=== PATIENT | male | born 1935 | race Caucasian/White ===

== ENCOUNTER 2017-10-06 12:40 | Inpatient (IN) | payer MEDICARE, BC ==
[2017-10-06] MEDS: ONDANSETRON 4 MG INJ IV (15:24)
[2017-10-06] MEDS: SOD CHLORIDE 0.9% 1,000 ML IV (15:25)
[2017-10-06 15:50] LABS: ABNORMAL IP MESSAGE 1; HEMATOCRIT 37.9 % (42.0-52.0); HEMOGLOBIN 11.8 g/dl (14.0-18.0); MEAN CORPUSCULAR HEMOGLOBIN 31.1 pg (29.0-33.0); MEAN CORPUSCULAR HGB CONC 31.1 g/dl (32.0-37.0); MEAN CORPUSCULAR VOLUME 99.7 fl (82.0-101.0); MEAN PLATELET VOLUME 11.1 fl (7.4-10.4); PLATELET COUNT 324 10^3/UL (140-415); POSITIVE DIFF @See below; RED CELL DISTRIBUTION WIDTH 14.6 % (11.5-14.5)
[2017-10-06 15:50] LABS: WHITE BLOOD COUNT 27.2 10^3/ul (4.8-10.8)
[2017-10-06 16:07] LABS: ALANINE AMINOTRANSFERASE 99 IU/L (13-69); ALBUMIN 3.8 g/dl (3.3-4.9); ALBUMIN/GLOBULIN RATIO 1.02; ALKALINE PHOSPHATASE 145 IU/L (42-121); ANION GAP 17 (8-16); ASPARTATE AMINO TRANSFERASE 35 IU/L (15-46); BILIRUBIN,INDIRECT 1.3 mg/dl (0-1.1); BILIRUBIN,TOTAL 1.3 mg/dl (0.2-1.3); BLOOD UREA NITROGEN 55 mg/dl (7-20); CALCIUM 8.8 mg/dl (8.4-10.2); CARBON DIOXIDE 29 mmol/L (21-31); CHLORIDE 107 mmol/L (97-110); CREATININE 2.16 mg/dl (0.61-1.24); GLUCOSE 135 mg/dl (70-220); LIPASE 366 U/L (23-300); POTASSIUM 3.8 mmol/L (3.5-5.1); SODIUM 149 mmol/L (135-144); TOTAL PROTEIN 7.5 g/dl (6.1-8.1)
[2017-10-06 16:09] LABS: ADD MAN DIFF? YES
[2017-10-06 16:45] LABS: BAND NEUTROPHILS % (M) 4 % (0-4); LYMPHOCYTES % (M) 4 % (15-51); MONOCYTE #M 1.9 10^3/ul (0.3-0.9); MONOCYTES % (M) 7 % (0-11); PLATELET ESTIMATE NORMAL; POIKILOCYTOSIS 1+ (0-0); SEG NEUT #M 23.4 10^3/ul (1.6-7.5); SEGMENTED NEUTROPHILS (M) % 85 % (39-77); SMUDGE%M 3 % (0-0)
[2017-10-06] MEDS: CEFEPIME 1GM/50 ML (PMX) 50 ML IVPB (17:57)
[2017-10-06] MEDS: SODIUM CHLORIDE 0.9% 1L BAG IV* (17:59)
[2017-10-06] MEDS ORDERED: NACL 0.9% 3 ML SYG IV ×2 (18:00)
[2017-10-06] MEDS ORDERED: ACETAMINOPHEN 325 MG TAB PO (18:00)
[2017-10-06] MEDS ORDERED: morphine 2 MG INJ IV (18:00)
[2017-10-06] MEDS ORDERED: ONDANSETRON 4 MG INJ IV (18:00)
[2017-10-06 18:19] LABS: INR 1.18; PROTIME 15.2 Sec (11.9-14.9); PT RATIO 1.2
[2017-10-06 18:20] LABS: PARTIAL THROMBOPLASTIN TIME 31.8 Sec (25.0-35.0)
[2017-10-06 18:29] LABS: LACTIC ACID 0.9 mmol/L (0.5-2.0)
[2017-10-06] MEDS: VANCOMYCIN 1 GM (PMX) 250 ML IVPB (18:30)
[2017-10-06 18:41] LABS: TROPONIN-I 0.036 ng/ml (0.000-0.120)
[2017-10-06 21:34] LABS: LACTIC ACID 0.8 mmol/L (0.5-2.0)
[2017-10-06] MEDS: HEPARIN 5,000 UNIT/0.5 ML VIAL SC (22:02)
[2017-10-06] MEDS: D5W-0.45 NACL + KCL 20 MEQ 1,000 ML IV (22:04)
[2017-10-07] MEDS: HYDROmorphONE 0.5 MG/0.5 ML SYG IV ×4 (01:54→17:16)
[2017-10-07] MEDS: D5W-0.45 NACL + KCL 20 MEQ 1,000 ML IV ×3 (01:55→17:15)
[2017-10-07 05:55] LABS: ADD MAN DIFF? NO
[2017-10-07 06:04] LABS: ABNORMAL IP MESSAGE 1; BASOPHILS % 0.1 % (0.0-2.0); EOSINOPHILS % 0.1 % (0.0-7.0); HEMATOCRIT 29.2 % (42.0-52.0); LYMPHOCYTES # 0.9 10^3/ul (0.8-2.9); MEAN CORPUSCULAR HEMOGLOBIN 30.7 pg (29.0-33.0); MEAN CORPUSCULAR HGB CONC 30.8 g/dl (32.0-37.0); MEAN CORPUSCULAR VOLUME 99.7 fl (82.0-101.0); MEAN PLATELET VOLUME 11.3 fl (7.4-10.4); MONOCYTE # 1.8 10^3/ul (0.3-0.9); MONOCYTES % 9.6 % (0.0-11.0); NEUTROPHIL # 15.7 10^3/ul (1.6-7.5); NEUTROPHILS % 84.4 % (39.0-77.0); PLATELET COUNT 271 10^3/UL (140-415); POSITIVE DIFF @See below; RED BLOOD COUNT 2.93 10^6/ul (4.70-6.10); RED CELL DISTRIBUTION WIDTH 14.6 % (11.5-14.5)
[2017-10-07 06:04] LABS: WHITE BLOOD COUNT 18.6 10^3/ul (4.8-10.8)
[2017-10-07 06:19] LABS: AMYLASE 119 U/L (11-123)
[2017-10-07 06:19] LABS: LIPASE 202 U/L (23-300)
[2017-10-07 06:24] LABS: ADD UMIC YES; UR AMORPHOUS CRYSTAL FEW /HPF (NONE SEEN); UR ASCORBIC ACID NEGATIVE (NEGATIVE); UR BACTERIA FEW /HPF (NONE SEEN); UR BILIRUBIN (Dip) NEGATIVE (NEGATIVE); UR BLOOD (Dip) NEGATIVE (NEGATIVE); UR CLARITY CLOUDY (CLEAR); UR COLOR YELLOW (YELLOW); UR GLUCOSE (Dip) NEGATIVE (NEGATIVE); UR KETONES (Dip) NEGATIVE (NEGATIVE); UR LEUKOCYTE ESTERASE (Dip) NEGATIVE Leu/ul (NEGATIVE); UR NITRITE (Dip) NEGATIVE (NEGATIVE); UR RBC 0 /HPF (0-5); UR SPECIFIC GRAVITY (Dip) 1.013 (1.003-1.030); UR TOTAL PROTEIN (Dip) NEGATIVE (NEGATIVE); UR UROBILINOGEN (Dip) NEGATIVE (NEGATIVE); UR WBC 2 /HPF (0-5)
[2017-10-07 06:35] LABS: ALANINE AMINOTRANSFERASE 65 IU/L (13-69); ALBUMIN 2.7 g/dl (3.3-4.9); ALKALINE PHOSPHATASE 98 IU/L (42-121); ANION GAP 11 (8-16); ASPARTATE AMINO TRANSFERASE 20 IU/L (15-46); BILIRUBIN,INDIRECT 0.6 mg/dl (0-1.1); BILIRUBIN,TOTAL 0.6 mg/dl (0.2-1.3); BLOOD UREA NITROGEN 66 mg/dl (7-20); CALCIUM 7.6 mg/dl (8.4-10.2); CARBON DIOXIDE 26 mmol/L (21-31); CHLORIDE 114 mmol/L (97-110); CREATININE 2.11 mg/dl (0.61-1.24); GLUCOSE 121 mg/dl (70-220); HDL CHOLESTEROL 20 mg/dl (31-75); MAGNESIUM 2.7 mg/dl (1.7-2.5); PHOSPHORUS 3.1 mg/dl (2.5-4.9); POTASSIUM 3.7 mmol/L (3.5-5.1); SODIUM 147 mmol/L (135-144); TOTAL PROTEIN 5.7 g/dl (6.1-8.1); TRIGLYCERIDES 54 mg/dl (0-149)
[2017-10-07] MEDS: PANTOPRAZOLE 40 MG INJ IV (06:37)
[2017-10-07] MEDS: HEPARIN 5,000 UNIT/0.5 ML VIAL SC ×3 (06:39→21:10)
[2017-10-07 06:40] LABS: CHOLESTEROL < 50 mg/dl (100-200)
[2017-10-07 07:25] LABS: HEMOGLOBIN A1C 5.7 % (0-5.9)
[2017-10-07] MEDS: CEFEPIME 2GM/50 ML (PMX) 50 ML IVPB (17:15)
[2017-10-07] MEDS: ZOLPIDEM 5 MG TAB PO (21:10)
[2017-10-07] MEDS: morphine 2 MG INJ IV (21:24)
[2017-10-08] MEDS: HYDROCODONE/APAP (5/325) TAB PO ×4 (00:09→20:33)
[2017-10-08] MEDS: D5W-0.45 NACL + KCL 20 MEQ 1,000 ML IV ×3 (01:55→16:34)
[2017-10-08] MEDS: PANTOPRAZOLE 40 MG INJ IV (05:56)
[2017-10-08] MEDS: HEPARIN 5,000 UNIT/0.5 ML VIAL SC ×3 (05:56→20:31)
[2017-10-08 06:11] LABS: ADD MAN DIFF? NO
[2017-10-08 06:20] LABS: WHITE BLOOD COUNT 16.8 10^3/ul (4.8-10.8)
[2017-10-08 06:20] LABS: ABNORMAL IP MESSAGE 1; BASOPHILS % 0.1 % (0.0-2.0); EOSINOPHILS # 0.1 10^3/ul (0.0-0.5); EOSINOPHILS % 0.7 % (0.0-7.0); HEMATOCRIT 30.5 % (42.0-52.0); HEMOGLOBIN 9.3 g/dl (14.0-18.0); LYMPHOCYTES # 1.1 10^3/ul (0.8-2.9); LYMPHOCYTES % 6.5 % (15.0-51.0); MEAN CORPUSCULAR HGB CONC 30.5 g/dl (32.0-37.0); MEAN CORPUSCULAR VOLUME 101.7 fl (82.0-101.0); MEAN PLATELET VOLUME 11.3 fl (7.4-10.4); MONOCYTE # 1.8 10^3/ul (0.3-0.9); MONOCYTES % 10.4 % (0.0-11.0); NEUTROPHIL # 13.8 10^3/ul (1.6-7.5); NEUTROPHILS % 81.8 % (39.0-77.0); PLATELET COUNT 276 10^3/UL (140-415); POSITIVE DIFF @See below; RED CELL DISTRIBUTION WIDTH 14.6 % (11.5-14.5)
[2017-10-08 06:45] LABS: ALANINE AMINOTRANSFERASE 52 IU/L (13-69); ALBUMIN 3.1 g/dl (3.3-4.9); ALBUMIN/GLOBULIN RATIO 0.91; ALKALINE PHOSPHATASE 93 IU/L (42-121); AMYLASE 71 U/L (11-123); ANION GAP 16 (8-16); ASPARTATE AMINO TRANSFERASE 23 IU/L (15-46); BILIRUBIN,INDIRECT 0.6 mg/dl (0-1.1); BILIRUBIN,TOTAL 0.6 mg/dl (0.2-1.3); BLOOD UREA NITROGEN 54 mg/dl (7-20); CALCIUM 7.9 mg/dl (8.4-10.2); CARBON DIOXIDE 24 mmol/L (21-31); CHLORIDE 114 mmol/L (97-110); GLUCOSE 123 mg/dl (70-220); LIPASE 84 U/L (23-300); POTASSIUM 4.1 mmol/L (3.5-5.1); SODIUM 150 mmol/L (135-144); TOTAL PROTEIN 6.5 g/dl (6.1-8.1)
[2017-10-08 06:57] LABS: MAGNESIUM 2.8 mg/dl (1.7-2.5)
[2017-10-08 06:57] LABS: PHOSPHORUS 3.2 mg/dl (2.5-4.9)
[2017-10-08] MEDS: morphine 2 MG INJ IV ×4 (08:21→22:47)
[2017-10-08] MEDS: LACTATED RINGER'S 500 ML IV ×2 (10:59→11:06)
[2017-10-08] MEDS: CEFEPIME 2GM/50 ML (PMX) 50 ML IVPB (16:35)
[2017-10-08] MEDS: TAMSULOSIN (SR) 0.4 MG CAP PO (20:30)
[2017-10-09] MEDS: HYDROCODONE/APAP (5/325) TAB PO ×4 (00:40→16:50)
[2017-10-09] MEDS: D5W-0.45 NACL + KCL 20 MEQ 1,000 ML IV ×4 (00:41→20:51)
[2017-10-09] MEDS: morphine 2 MG INJ IV ×2 (03:45→08:35)
[2017-10-09] MEDS: PANTOPRAZOLE 40 MG INJ IV (05:40)
[2017-10-09] MEDS: HEPARIN 5,000 UNIT/0.5 ML VIAL SC ×3 (05:43→20:53)
[2017-10-09 06:16] LABS: ADD MAN DIFF? NO
[2017-10-09 06:19] LABS: WHITE BLOOD COUNT 15.8 10^3/ul (4.8-10.8)
[2017-10-09 06:19] LABS: ABNORMAL IP MESSAGE 1; BASOPHILS % 0.3 % (0.0-2.0); EOSINOPHILS # 0.3 10^3/ul (0.0-0.5); EOSINOPHILS % 1.8 % (0.0-7.0); HEMATOCRIT 28.5 % (42.0-52.0); HEMOGLOBIN 8.6 g/dl (14.0-18.0); MEAN CORPUSCULAR HEMOGLOBIN 30.9 pg (29.0-33.0); MEAN CORPUSCULAR HGB CONC 30.2 g/dl (32.0-37.0); MEAN CORPUSCULAR VOLUME 102.5 fl (82.0-101.0); MEAN PLATELET VOLUME 11.1 fl (7.4-10.4); MONOCYTE # 1.8 10^3/ul (0.3-0.9); MONOCYTES % 11.5 % (0.0-11.0); NEUTROPHIL # 12.6 10^3/ul (1.6-7.5); NEUTROPHILS % 79.8 % (39.0-77.0); PLATELET COUNT 284 10^3/UL (140-415); POSITIVE DIFF @See below; RED BLOOD COUNT 2.78 10^6/ul (4.70-6.10); RED CELL DISTRIBUTION WIDTH 14.8 % (11.5-14.5)
[2017-10-09 06:47] LABS: ALANINE AMINOTRANSFERASE 49 IU/L (13-69); ALBUMIN 2.7 g/dl (3.3-4.9); ALKALINE PHOSPHATASE 90 IU/L (42-121); AMYLASE 52 U/L (11-123); ANION GAP 11 (8-16); ASPARTATE AMINO TRANSFERASE 18 IU/L (15-46); BILIRUBIN,INDIRECT 0.3 mg/dl (0-1.1); BILIRUBIN,TOTAL 0.3 mg/dl (0.2-1.3); BLOOD UREA NITROGEN 52 mg/dl (7-20); CARBON DIOXIDE 25 mmol/L (21-31); CHLORIDE 113 mmol/L (97-110); CREATININE 1.93 mg/dl (0.61-1.24); GLUCOSE 114 mg/dl (70-220); LIPASE 59 U/L (23-300); POTASSIUM 4.1 mmol/L (3.5-5.1); SODIUM 145 mmol/L (135-144); TOTAL PROTEIN 5.7 g/dl (6.1-8.1)
[2017-10-09 07:58] LABS: ERYTHROCYTE SEDIMENTATION RATE 104 mm/Hr (0-20)
[2017-10-09] MEDS: LACTATED RINGER'S 500 ML IV (11:39)
[2017-10-09] MEDS: morphine LIQ (10 MG/5 ML) CUP PO (12:50)
[2017-10-09] MEDS: CEFEPIME 2GM/50 ML (PMX) 50 ML IVPB (17:05)
[2017-10-09] MEDS: TAMSULOSIN (SR) 0.4 MG CAP PO (20:53)
[2017-10-10] MEDS: D5W-0.45 NACL + KCL 20 MEQ 1,000 ML IV ×2 (05:40→18:16)
[2017-10-10] MEDS: PANTOPRAZOLE 40 MG INJ IV (05:40)
[2017-10-10] MEDS: HEPARIN 5,000 UNIT/0.5 ML VIAL SC (05:42)
[2017-10-10 06:28] LABS: ADD MAN DIFF? NO
[2017-10-10 06:34] LABS: ABNORMAL IP MESSAGE 1; BASOPHILS % 0.2 % (0.0-2.0); EOSINOPHILS # 0.2 10^3/ul (0.0-0.5); EOSINOPHILS % 1.6 % (0.0-7.0); HEMATOCRIT 26.4 % (42.0-52.0); LYMPHOCYTES # 0.8 10^3/ul (0.8-2.9); LYMPHOCYTES % 5.4 % (15.0-51.0); MEAN CORPUSCULAR HEMOGLOBIN 30.8 pg (29.0-33.0); MEAN CORPUSCULAR HGB CONC 30.3 g/dl (32.0-37.0); MEAN CORPUSCULAR VOLUME 101.5 fl (82.0-101.0); MEAN PLATELET VOLUME 10.9 fl (7.4-10.4); MONOCYTE # 1.7 10^3/ul (0.3-0.9); MONOCYTES % 11.3 % (0.0-11.0); NEUTROPHIL # 12.4 10^3/ul (1.6-7.5); NEUTROPHILS % 80.7 % (39.0-77.0); PLATELET COUNT 288 10^3/UL (140-415); POSITIVE DIFF @See below; RED CELL DISTRIBUTION WIDTH 15.1 % (11.5-14.5)
[2017-10-10 06:34] LABS: WHITE BLOOD COUNT 15.4 10^3/ul (4.8-10.8)
[2017-10-10 06:54] LABS: ALANINE AMINOTRANSFERASE 42 IU/L (13-69); ALBUMIN 2.6 g/dl (3.3-4.9); ALBUMIN/GLOBULIN RATIO 0.86; ALKALINE PHOSPHATASE 89 IU/L (42-121); AMYLASE 56 U/L (11-123); ANION GAP 13 (8-16); ASPARTATE AMINO TRANSFERASE 17 IU/L (15-46); BILIRUBIN,INDIRECT 0.2 mg/dl (0-1.1); BILIRUBIN,TOTAL 0.2 mg/dl (0.2-1.3); BLOOD UREA NITROGEN 56 mg/dl (7-20); CALCIUM 8.2 mg/dl (8.4-10.2); CARBON DIOXIDE 24 mmol/L (21-31); CHLORIDE 114 mmol/L (97-110); CREATININE 1.98 mg/dl (0.61-1.24); GLUCOSE 119 mg/dl (70-220); LIPASE 52 U/L (23-300); POTASSIUM 4.9 mmol/L (3.5-5.1); SODIUM 146 mmol/L (135-144); TOTAL PROTEIN 5.6 g/dl (6.1-8.1)
[2017-10-10] MEDS ORDERED: BUPIVACAINE 0.25%/EPI (MDV) 50 ML VIAL INJ (08:00)
[2017-10-10] MEDS: HYDROCODONE/APAP (5/325) TAB PO ×2 (09:16→16:12)
[2017-10-10] MEDS: morphine LIQ (10 MG/5 ML) CUP PO ×2 (12:16→18:16)
[2017-10-10 16:10] LABS: INR 1.18; PROTIME 15.2 Sec (11.9-14.9); PT RATIO 1.2
[2017-10-10] MEDS: CEFEPIME 2GM/50 ML (PMX) 50 ML IVPB (16:12)
[2017-10-10] MEDS: SOD CHLORIDE 0.9% 1,000 ML IV (20:21)
[2017-10-10] MEDS: TAMSULOSIN (SR) 0.4 MG CAP PO (20:22)
[2017-10-11] MEDS: LIDOCAINE 1% (MPF) 30 ML INJ
[2017-10-11] MEDS: SODIUM CHLORIDE 0.9% 1L IRRIG IRR
[2017-10-11] MEDS: D5W-0.45 NACL + KCL 20 MEQ 1,000 ML IV ×3 (03:34→21:59)
[2017-10-11] MEDS: PANTOPRAZOLE 40 MG INJ IV (06:46)
[2017-10-11] MEDS ORDERED: BUPIVACAINE 0.25%/EPI (MDV) 50 ML VIAL INJ (07:00)
[2017-10-11] MEDS: HYDROCODONE/APAP (5/325) TAB PO ×2 (09:59→17:26)
[2017-10-11] MEDS: morphine LIQ (10 MG/5 ML) CUP PO (12:09)
[2017-10-11 14:49] LABS: ADD MAN DIFF? NO
[2017-10-11 14:52] LABS: WHITE BLOOD COUNT 14.9 10^3/ul (4.8-10.8)
[2017-10-11 14:52] LABS: ABNORMAL IP MESSAGE 1; BASOPHILS % 0.2 % (0.0-2.0); EOSINOPHILS # 0.2 10^3/ul (0.0-0.5); EOSINOPHILS % 1.4 % (0.0-7.0); HEMATOCRIT 26.3 % (42.0-52.0); LYMPHOCYTES # 0.6 10^3/ul (0.8-2.9); MEAN CORPUSCULAR HEMOGLOBIN 30.7 pg (29.0-33.0); MEAN CORPUSCULAR HGB CONC 30.4 g/dl (32.0-37.0); MEAN CORPUSCULAR VOLUME 100.8 fl (82.0-101.0); MONOCYTE # 1.7 10^3/ul (0.3-0.9); MONOCYTES % 11.3 % (0.0-11.0); NEUTROPHIL # 12.2 10^3/ul (1.6-7.5); PLATELET COUNT 320 10^3/UL (140-415); POSITIVE DIFF @See below; RED BLOOD COUNT 2.61 10^6/ul (4.70-6.10); RED CELL DISTRIBUTION WIDTH 15.3 % (11.5-14.5)
[2017-10-11 15:24] LABS: ALANINE AMINOTRANSFERASE 45 IU/L (13-69); ALBUMIN 2.5 g/dl (3.3-4.9); ALBUMIN/GLOBULIN RATIO 0.83; ALKALINE PHOSPHATASE 89 IU/L (42-121); AMYLASE 44 U/L (11-123); ANION GAP 10 (8-16); ASPARTATE AMINO TRANSFERASE 26 IU/L (15-46); BILIRUBIN,INDIRECT 0.1 mg/dl (0-1.1); BILIRUBIN,TOTAL 0.1 mg/dl (0.2-1.3); BLOOD UREA NITROGEN 47 mg/dl (7-20); CALCIUM 8.4 mg/dl (8.4-10.2); CARBON DIOXIDE 24 mmol/L (21-31); CHLORIDE 116 mmol/L (97-110); CREATININE 1.51 mg/dl (0.61-1.24); GLUCOSE 132 mg/dl (70-220); LIPASE 46 U/L (23-300); POTASSIUM 5.3 mmol/L (3.5-5.1); SODIUM 145 mmol/L (135-144); TOTAL PROTEIN 5.5 g/dl (6.1-8.1)
[2017-10-11] MEDS: CEFEPIME 2GM/50 ML (PMX) 50 ML IVPB (17:26)
[2017-10-11] MEDS: TAMSULOSIN (SR) 0.4 MG CAP PO (21:58)
[2017-10-12] MEDS: D5W-0.45 NACL + KCL 20 MEQ 1,000 ML IV ×3 (01:55→18:41)
[2017-10-12] MEDS: PANTOPRAZOLE 40 MG INJ IV (05:51)
[2017-10-12 07:04] LABS: ADD MAN DIFF? NO
[2017-10-12 07:05] LABS: ABNORMAL IP MESSAGE 1; BASOPHILS % 0.2 % (0.0-2.0); EOSINOPHILS # 0.2 10^3/ul (0.0-0.5); EOSINOPHILS % 1.4 % (0.0-7.0); HEMATOCRIT 27.4 % (42.0-52.0); HEMOGLOBIN 8.3 g/dl (14.0-18.0); LYMPHOCYTES # 0.4 10^3/ul (0.8-2.9); LYMPHOCYTES % 2.5 % (15.0-51.0); MEAN CORPUSCULAR HEMOGLOBIN 30.6 pg (29.0-33.0); MEAN CORPUSCULAR HGB CONC 30.3 g/dl (32.0-37.0); MEAN CORPUSCULAR VOLUME 101.1 fl (82.0-101.0); MEAN PLATELET VOLUME 10.7 fl (7.4-10.4); MONOCYTE # 1.4 10^3/ul (0.3-0.9); MONOCYTES % 10.3 % (0.0-11.0); NEUTROPHIL # 11.8 10^3/ul (1.6-7.5); NEUTROPHILS % 84.6 % (39.0-77.0); PLATELET COUNT 347 10^3/UL (140-415); POSITIVE DIFF @See below; RED BLOOD COUNT 2.71 10^6/ul (4.70-6.10); RED CELL DISTRIBUTION WIDTH 15.2 % (11.5-14.5)
[2017-10-12 07:30] LABS: LACTATE DEHYDROGENASE 739 IU/L (313-618); MAGNESIUM 2.2 mg/dl (1.7-2.5)
[2017-10-12 07:30] LABS: PHOSPHORUS 3.2 mg/dl (2.5-4.9)
[2017-10-12 07:31] LABS: ALANINE AMINOTRANSFERASE 45 IU/L (13-69); ALBUMIN 2.5 g/dl (3.3-4.9); ALBUMIN/GLOBULIN RATIO 0.78; ALKALINE PHOSPHATASE 90 IU/L (42-121); AMYLASE 39 U/L (11-123); ANION GAP 13 (8-16); ASPARTATE AMINO TRANSFERASE 35 IU/L (15-46); BILIRUBIN,INDIRECT 0.1 mg/dl (0-1.1); BILIRUBIN,TOTAL 0.1 mg/dl (0.2-1.3); BLOOD UREA NITROGEN 44 mg/dl (7-20); CALCIUM 8.5 mg/dl (8.4-10.2); CARBON DIOXIDE 21 mmol/L (21-31); CHLORIDE 117 mmol/L (97-110); CREATININE 1.48 mg/dl (0.61-1.24); GLUCOSE 112 mg/dl (70-220); LIPASE 39 U/L (23-300); POTASSIUM 4.9 mmol/L (3.5-5.1); SODIUM 146 mmol/L (135-144); TOTAL PROTEIN 5.7 g/dl (6.1-8.1)
[2017-10-12] MEDS: CREON (12k-38k-60k) 1 CAP PO ×3 (08:06→17:48)
[2017-10-12] MEDS ORDERED: LIDOCAINE 1% (MPF) 30 ML INJ (09:29)
[2017-10-12] MEDS: HEPARIN 5,000 UNIT/0.5 ML VIAL SC ×2 (14:00→21:35)
[2017-10-12] MEDS: CEFEPIME 2GM/50 ML (PMX) 50 ML IVPB (16:56)
[2017-10-12] MEDS: METOCLOPRAMIDE 10 MG INJ IV (18:41)
[2017-10-12] MEDS: TAMSULOSIN (SR) 0.4 MG CAP PO (21:35)
[2017-10-13] MEDS: D5W-0.45 NACL + KCL 20 MEQ 1,000 ML IV (02:32)
[2017-10-13] MEDS: METOCLOPRAMIDE 10 MG INJ IV ×2 (02:33→11:59)
[2017-10-13] MEDS: PANTOPRAZOLE 40 MG INJ IV (05:35)
[2017-10-13] MEDS: HEPARIN 5,000 UNIT/0.5 ML VIAL SC ×3 (05:37→21:37)
[2017-10-13] MEDS: ONDANSETRON 4 MG INJ IV (05:37)
[2017-10-13 06:26] LABS: ADD MAN DIFF? NO; BASOPHILS % 0.2 % (0.0-2.0); EOSINOPHILS # 0.2 10^3/ul (0.0-0.5); EOSINOPHILS % 1.5 % (0.0-7.0); HEMATOCRIT 25.7 % (42.0-52.0); LYMPHOCYTES # 0.6 10^3/ul (0.8-2.9); MEAN CORPUSCULAR HEMOGLOBIN 30.9 pg (29.0-33.0); MEAN CORPUSCULAR HGB CONC 31.1 g/dl (32.0-37.0); MEAN CORPUSCULAR VOLUME 99.2 fl (82.0-101.0); MEAN PLATELET VOLUME 10.6 fl (7.4-10.4); MONOCYTE # 1.4 10^3/ul (0.3-0.9); NEUTROPHIL # 13.2 10^3/ul (1.6-7.5); NEUTROPHILS % 84.3 % (39.0-77.0); NUCLEATED RED BLOOD CELLS% 0.1 /100WBC (0.0-0.0); PLATELET COUNT 369 10^3/UL (140-415); RED BLOOD COUNT 2.59 10^6/ul (4.70-6.10); RED CELL DISTRIBUTION WIDTH 15.3 % (11.5-14.5)
[2017-10-13 06:26] LABS: WHITE BLOOD COUNT 15.7 10^3/ul (4.8-10.8)
[2017-10-13 06:48] LABS: ALANINE AMINOTRANSFERASE 55 IU/L (13-69); ALBUMIN 2.3 g/dl (3.3-4.9); ALBUMIN/GLOBULIN RATIO 0.82; ALKALINE PHOSPHATASE 84 IU/L (42-121); AMYLASE 34 U/L (11-123); ANION GAP 8 (8-16); ASPARTATE AMINO TRANSFERASE 44 IU/L (15-46); BILIRUBIN,INDIRECT 0.1 mg/dl (0-1.1); BILIRUBIN,TOTAL 0.1 mg/dl (0.2-1.3); BLOOD UREA NITROGEN 32 mg/dl (7-20); CALCIUM 8.3 mg/dl (8.4-10.2); CARBON DIOXIDE 23 mmol/L (21-31); CHLORIDE 120 mmol/L (97-110); CREATININE 1.22 mg/dl (0.61-1.24); GLUCOSE 144 mg/dl (70-220); LIPASE 59 U/L (23-300); POTASSIUM 5.3 mmol/L (3.5-5.1); SODIUM 146 mmol/L (135-144); TOTAL PROTEIN 5.1 g/dl (6.1-8.1)
[2017-10-13] MEDS: CREON (12k-38k-60k) 1 CAP PO ×3 (07:35→17:33)
[2017-10-13] MEDS: POTASSIUM CHLORIDE 10 MEQ in DEXTROSE 5%-0.225% NACL 1,000 ML IV ×3 (11:01→20:30)
[2017-10-13] MEDS: CEFEPIME 2GM/50 ML (PMX) 50 ML IVPB (17:33)
[2017-10-13] MEDS: TAMSULOSIN (SR) 0.4 MG CAP PO (20:33)
[2017-10-14] MEDS: POTASSIUM CHLORIDE 10 MEQ in DEXTROSE 5%-0.225% NACL 1,000 ML IV ×3 (05:40→22:23)
[2017-10-14] MEDS: PANTOPRAZOLE 40 MG INJ IV (05:40)
[2017-10-14] MEDS: HEPARIN 5,000 UNIT/0.5 ML VIAL SC ×3 (05:45→22:29)
[2017-10-14 05:49] LABS: ADD MAN DIFF? NO
[2017-10-14 05:53] LABS: BASOPHILS % 0.2 % (0.0-2.0); EOSINOPHILS # 0.2 10^3/ul (0.0-0.5); EOSINOPHILS % 1.2 % (0.0-7.0); HEMATOCRIT 26.9 % (42.0-52.0); HEMOGLOBIN 8.3 g/dl (14.0-18.0); LYMPHOCYTES # 0.7 10^3/ul (0.8-2.9); LYMPHOCYTES % 4.3 % (15.0-51.0); MEAN CORPUSCULAR HEMOGLOBIN 30.4 pg (29.0-33.0); MEAN CORPUSCULAR HGB CONC 30.9 g/dl (32.0-37.0); MEAN CORPUSCULAR VOLUME 98.5 fl (82.0-101.0); MEAN PLATELET VOLUME 10.6 fl (7.4-10.4); MONOCYTE # 1.4 10^3/ul (0.3-0.9); MONOCYTES % 8.6 % (0.0-11.0); NEUTROPHIL # 14.1 10^3/ul (1.6-7.5); NEUTROPHILS % 84.4 % (39.0-77.0); NUCLEATED RED BLOOD CELLS% 0.1 /100WBC (0.0-0.0); PLATELET COUNT 412 10^3/UL (140-415); RED BLOOD COUNT 2.73 10^6/ul (4.70-6.10); RED CELL DISTRIBUTION WIDTH 15.1 % (11.5-14.5)
[2017-10-14 05:53] LABS: WHITE BLOOD COUNT 16.7 10^3/ul (4.8-10.8)
[2017-10-14 06:08] LABS: ALANINE AMINOTRANSFERASE 67 IU/L (13-69); ALBUMIN 2.4 g/dl (3.3-4.9); ALBUMIN/GLOBULIN RATIO 0.82; ALKALINE PHOSPHATASE 83 IU/L (42-121); ANION GAP 11 (8-16); ASPARTATE AMINO TRANSFERASE 48 IU/L (15-46); BILIRUBIN,INDIRECT 0.1 mg/dl (0-1.1); BILIRUBIN,TOTAL 0.1 mg/dl (0.2-1.3); BLOOD UREA NITROGEN 24 mg/dl (7-20); CALCIUM 8.3 mg/dl (8.4-10.2); CARBON DIOXIDE 21 mmol/L (21-31); CHLORIDE 117 mmol/L (97-110); CREATININE 1.12 mg/dl (0.61-1.24); GLUCOSE 135 mg/dl (70-220); POTASSIUM 4.2 mmol/L (3.5-5.1); SODIUM 145 mmol/L (135-144); TOTAL PROTEIN 5.3 g/dl (6.1-8.1)
[2017-10-14] MEDS: CREON (12k-38k-60k) 1 CAP PO ×3 (08:39→17:54)
[2017-10-14] MEDS: ACCU-CHEK XX ×4 (09:30→21:00)
[2017-10-14] MEDS: ONDANSETRON 4 MG INJ IV ×2 (12:37→21:28)
[2017-10-14 12:39] LABS: MAGNESIUM 1.6 mg/dl (1.7-2.5); TRIGLYCERIDES 118 mg/dl (0-149)
[2017-10-14 12:39] LABS: PHOSPHORUS 2.6 mg/dl (2.5-4.9)
[2017-10-14 12:46] LABS: PREALBUMIN 6.7 mg/dl (17.6-36.0)
[2017-10-14] MEDS: CEFEPIME 2GM/50 ML (PMX) 50 ML IVPB (16:14)
[2017-10-14] MEDS: METOCLOPRAMIDE 10 MG INJ IV (18:09)
[2017-10-14] MEDS ORDERED: FAT EMULSION 20% 250 ML IV (19:00)
[2017-10-14] MEDS ORDERED: TPN 1,000 ML IV (19:00)
[2017-10-14] MEDS: MAGNESIUM OXIDE 400 MG TAB PO (21:28)
[2017-10-14] MEDS: TAMSULOSIN (SR) 0.4 MG CAP PO (21:28)
[2017-10-15] MEDS: ACCU-CHEK XX ×6 (01:00→22:05)
[2017-10-15] MEDS: PANTOPRAZOLE 40 MG INJ IV (05:46)
[2017-10-15] MEDS: HEPARIN 5,000 UNIT/0.5 ML VIAL SC ×3 (05:49→22:05)
[2017-10-15 06:04] LABS: ADD MAN DIFF? NO
[2017-10-15 06:13] LABS: WHITE BLOOD COUNT 13.6 10^3/ul (4.8-10.8)
[2017-10-15 06:13] LABS: BASOPHILS % 0.2 % (0.0-2.0); EOSINOPHILS # 0.2 10^3/ul (0.0-0.5); EOSINOPHILS % 1.5 % (0.0-7.0); HEMATOCRIT 25.6 % (42.0-52.0); HEMOGLOBIN 7.9 g/dl (14.0-18.0); LYMPHOCYTES # 0.8 10^3/ul (0.8-2.9); LYMPHOCYTES % 6.1 % (15.0-51.0); MEAN CORPUSCULAR HEMOGLOBIN 30.4 pg (29.0-33.0); MEAN CORPUSCULAR HGB CONC 30.9 g/dl (32.0-37.0); MEAN CORPUSCULAR VOLUME 98.5 fl (82.0-101.0); MONOCYTE # 1.3 10^3/ul (0.3-0.9); MONOCYTES % 9.2 % (0.0-11.0); NEUTROPHIL # 11.1 10^3/ul (1.6-7.5); NEUTROPHILS % 81.5 % (39.0-77.0); PLATELET COUNT 391 10^3/UL (140-415); RED CELL DISTRIBUTION WIDTH 14.8 % (11.5-14.5)
[2017-10-15 06:33] LABS: ALANINE AMINOTRANSFERASE 64 IU/L (13-69); ALKALINE PHOSPHATASE 73 IU/L (42-121); ASPARTATE AMINO TRANSFERASE 38 IU/L (15-46); BILIRUBIN,INDIRECT 0.1 mg/dl (0-1.1); BILIRUBIN,TOTAL 0.1 mg/dl (0.2-1.3); TOTAL PROTEIN 4.5 g/dl (6.1-8.1)
[2017-10-15 07:03] LABS: ANION GAP 11 (8-16); BLOOD UREA NITROGEN 18 mg/dl (7-20); CALCIUM 8.2 mg/dl (8.4-10.2); CARBON DIOXIDE 22 mmol/L (21-31); CHLORIDE 116 mmol/L (97-110); CREATININE 1.05 mg/dl (0.61-1.24); GLUCOSE 115 mg/dl (70-220); MAGNESIUM 1.5 mg/dl (1.7-2.5); PHOSPHORUS 2.6 mg/dl (2.5-4.9); POTASSIUM 4.1 mmol/L (3.5-5.1); SODIUM 145 mmol/L (135-144)
[2017-10-15] MEDS: CREON (12k-38k-60k) 1 CAP PO ×3 (07:35→17:35)
[2017-10-15] MEDS: FUROSEMIDE 20 MG INJ IV (08:52)
[2017-10-15] MEDS: POTASSIUM CHLORIDE 10 MEQ in DEXTROSE 5%-0.225% NACL 1,000 ML IV (08:53)
[2017-10-15] MEDS: ONDANSETRON 4 MG INJ IV ×2 (09:35→21:49)
[2017-10-15] MEDS: MAGNESIUM SULFATE 2 GM/50 ML 50 ML IVPB (11:52)
[2017-10-15] MEDS: TPN 1,000 ML IV (16:05)
[2017-10-15] MEDS: FAT EMULSION 20% 250 ML IV (16:05)
[2017-10-15] MEDS: METOCLOPRAMIDE 10 MG INJ IV (16:05)
[2017-10-15] MEDS: CEFEPIME 2GM/50 ML (PMX) 50 ML IVPB (17:00)
[2017-10-15] MEDS: metroNIDAZOLE 500 MG/NS (PMX) 100 ML IVPB (17:44)
[2017-10-15] MEDS: VANCOMYCIN HCL 250 MG/5ML POSYG PO (17:44)
[2017-10-15] MEDS: TAMSULOSIN (SR) 0.4 MG CAP PO (21:44)
[2017-10-15] MEDS: LACTOBACILLUS RHAMNOSUS CAP PO (21:44)
[2017-10-16] MEDS: metroNIDAZOLE 500 MG/NS (PMX) 100 ML IVPB ×4 (00:49→17:03)
[2017-10-16] MEDS: VANCOMYCIN HCL 250 MG/5ML POSYG PO ×4 (00:49→17:03)
[2017-10-16] MEDS: METOCLOPRAMIDE 10 MG INJ IV (00:54)
[2017-10-16] MEDS: ACCU-CHEK XX ×6 (01:00→20:44)
[2017-10-16] MEDS: FUROSEMIDE 20 MG INJ IV (05:24)
[2017-10-16] MEDS: PANTOPRAZOLE 40 MG INJ IV (05:45)
[2017-10-16] MEDS: HEPARIN 5,000 UNIT/0.5 ML VIAL SC ×3 (05:51→22:04)
[2017-10-16 07:02] LABS: ANION GAP 10 (8-16); BLOOD UREA NITROGEN 16 mg/dl (7-20); CALCIUM 8.1 mg/dl (8.4-10.2); CARBON DIOXIDE 24 mmol/L (21-31); CHLORIDE 113 mmol/L (97-110); CREATININE 1.03 mg/dl (0.61-1.24); GLUCOSE 115 mg/dl (70-220); MAGNESIUM 1.8 mg/dl (1.7-2.5); PHOSPHORUS 3.3 mg/dl (2.5-4.9); SODIUM 143 mmol/L (135-144)
[2017-10-16] MEDS: LACTOBACILLUS RHAMNOSUS CAP PO ×2 (09:00→20:44)
[2017-10-16] MEDS: CREON (12k-38k-60k) 1 CAP PO ×3 (09:00→17:03)
[2017-10-16] MEDS: TPN 1,000 ML IV ×2 (12:37→14:30)
[2017-10-16] MEDS: ONDANSETRON 4 MG INJ IV (12:39)
[2017-10-16] MEDS: FAT EMULSION 20% 250 ML IV (17:02)
[2017-10-16] MEDS: TAMSULOSIN (SR) 0.4 MG CAP PO (20:44)
[2017-10-17] MEDS: ACCU-CHEK XX ×6 (00:28→23:51)
[2017-10-17] MEDS: metroNIDAZOLE 500 MG/NS (PMX) 100 ML IVPB ×5 (00:35→23:51)
[2017-10-17] MEDS: TPN 1,000 ML IV ×2 (00:36→12:22)
[2017-10-17] MEDS: VANCOMYCIN HCL 250 MG/5ML POSYG PO ×5 (00:36→23:51)
[2017-10-17] MEDS: HYDROCODONE/APAP (5/325) TAB PO (00:36)
[2017-10-17] MEDS: PANTOPRAZOLE 40 MG INJ IV (05:49)
[2017-10-17] MEDS: HEPARIN 5,000 UNIT/0.5 ML VIAL SC ×3 (05:52→21:22)
[2017-10-17 06:46] LABS: ANION GAP 10 (8-16); BLOOD UREA NITROGEN 21 mg/dl (7-20); CALCIUM 8.2 mg/dl (8.4-10.2); CARBON DIOXIDE 28 mmol/L (21-31); CHLORIDE 109 mmol/L (97-110); GLUCOSE 147 mg/dl (70-220); MAGNESIUM 1.7 mg/dl (1.7-2.5); PHOSPHORUS 3.8 mg/dl (2.5-4.9); POTASSIUM 3.7 mmol/L (3.5-5.1); SODIUM 143 mmol/L (135-144)
[2017-10-17] MEDS: CREON (12k-38k-60k) 1 CAP PO ×3 (08:19→17:47)
[2017-10-17] MEDS: LACTOBACILLUS RHAMNOSUS CAP PO ×2 (08:19→21:11)
[2017-10-17] MEDS: FUROSEMIDE 20 MG INJ IV (15:00)
[2017-10-17] MEDS: FAT EMULSION 20% 250 ML IV (16:32)
[2017-10-17] MEDS: TAMSULOSIN (SR) 0.4 MG CAP PO (21:11)
[2017-10-18] MEDS: HYDROCODONE/APAP (5/325) TAB PO (01:27)
[2017-10-18] MEDS: TPN 1,000 ML IV ×2 (01:27→12:59)
[2017-10-18 05:44] LABS: ANION GAP 9 (8-16); BLOOD UREA NITROGEN 23 mg/dl (7-20); CALCIUM 8.1 mg/dl (8.4-10.2); CARBON DIOXIDE 30 mmol/L (21-31); CHLORIDE 108 mmol/L (97-110); CREATININE 0.96 mg/dl (0.61-1.24); GLUCOSE 149 mg/dl (70-220); POTASSIUM 3.9 mmol/L (3.5-5.1); SODIUM 143 mmol/L (135-144)
[2017-10-18] MEDS: PANTOPRAZOLE 40 MG INJ IV (05:47)
[2017-10-18] MEDS: VANCOMYCIN HCL 250 MG/5ML POSYG PO ×3 (05:48→17:50)
[2017-10-18] MEDS: metroNIDAZOLE 500 MG/NS (PMX) 100 ML IVPB ×3 (05:48→17:50)
[2017-10-18] MEDS: HEPARIN 5,000 UNIT/0.5 ML VIAL SC ×3 (05:49→22:03)
[2017-10-18] MEDS: ACCU-CHEK XX ×3 (05:55→17:58)
[2017-10-18] MEDS: CREON (12k-38k-60k) 1 CAP PO ×3 (07:55→17:50)
[2017-10-18] MEDS: LACTOBACILLUS RHAMNOSUS CAP PO ×2 (08:46→20:43)
[2017-10-18] MEDS: FAT EMULSION 20% 250 ML IV (16:13)
[2017-10-18] MEDS: TAMSULOSIN (SR) 0.4 MG CAP PO (20:43)
[2017-10-19] MEDS: metroNIDAZOLE 500 MG/NS (PMX) 100 ML IVPB ×5 (00:08→23:56)
[2017-10-19] MEDS: VANCOMYCIN HCL 250 MG/5ML POSYG PO ×5 (00:09→23:55)
[2017-10-19] MEDS: ACCU-CHEK XX ×4 (00:13→17:30)
[2017-10-19] MEDS: HYDROCODONE/APAP (5/325) TAB PO (00:25)
[2017-10-19] MEDS: TPN 1,000 ML IV ×2 (04:25→16:20)
[2017-10-19] MEDS: PANTOPRAZOLE 40 MG INJ IV (05:44)
[2017-10-19] MEDS: HEPARIN 5,000 UNIT/0.5 ML VIAL SC ×3 (05:45→21:30)
[2017-10-19 06:57] LABS: ADD MAN DIFF? NO
[2017-10-19 07:07] LABS: BASOPHILS % 0.3 % (0.0-2.0); EOSINOPHILS # 0.2 10^3/ul (0.0-0.5); EOSINOPHILS % 2.4 % (0.0-7.0); HEMATOCRIT 26.2 % (42.0-52.0); HEMOGLOBIN 8.1 g/dl (14.0-18.0); LYMPHOCYTES % 10.5 % (15.0-51.0); MEAN CORPUSCULAR HGB CONC 30.9 g/dl (32.0-37.0); MEAN PLATELET VOLUME 10.9 fl (7.4-10.4); MONOCYTE # 1.1 10^3/ul (0.3-0.9); MONOCYTES % 12.1 % (0.0-11.0); NEUTROPHIL # 6.8 10^3/ul (1.6-7.5); NEUTROPHILS % 72.6 % (39.0-77.0); PLATELET COUNT 456 10^3/UL (140-415); RED CELL DISTRIBUTION WIDTH 14.4 % (11.5-14.5)
[2017-10-19 07:07] LABS: WHITE BLOOD COUNT 9.4 10^3/ul (4.8-10.8)
[2017-10-19 07:45] LABS: ALANINE AMINOTRANSFERASE 44 IU/L (13-69); ALBUMIN 2.4 g/dl (3.3-4.9); ALBUMIN/GLOBULIN RATIO 0.82; ALKALINE PHOSPHATASE 66 IU/L (42-121); ANION GAP 13 (8-16); ASPARTATE AMINO TRANSFERASE 30 IU/L (15-46); BLOOD UREA NITROGEN 24 mg/dl (7-20); CALCIUM 8.3 mg/dl (8.4-10.2); CARBON DIOXIDE 28 mmol/L (21-31); CHLORIDE 105 mmol/L (97-110); CREATININE 0.93 mg/dl (0.61-1.24); GLUCOSE 133 mg/dl (70-220); POTASSIUM 4.1 mmol/L (3.5-5.1); SODIUM 142 mmol/L (135-144); TOTAL PROTEIN 5.3 g/dl (6.1-8.1)
[2017-10-19] MEDS: CREON (12k-38k-60k) 1 CAP PO ×3 (08:23→17:25)
[2017-10-19] MEDS: LACTOBACILLUS RHAMNOSUS CAP PO ×2 (08:23→21:27)
[2017-10-19] MEDS: FAT EMULSION 20% 250 ML IV (16:08)
[2017-10-19] MEDS: TAMSULOSIN (SR) 0.4 MG CAP PO (21:27)
[2017-10-20] MEDS: ACCU-CHEK XX ×4 (00:10→18:13)
[2017-10-20] MEDS: TPN 1,000 ML IV ×2 (04:44→18:10)
[2017-10-20] MEDS: PANTOPRAZOLE 40 MG INJ IV (05:34)
[2017-10-20] MEDS: VANCOMYCIN HCL 250 MG/5ML POSYG PO ×3 (05:35→17:59)
[2017-10-20] MEDS: metroNIDAZOLE 500 MG/NS (PMX) 100 ML IVPB ×3 (05:35→17:59)
[2017-10-20] MEDS: HEPARIN 5,000 UNIT/0.5 ML VIAL SC ×3 (05:35→22:37)
[2017-10-20 05:58] LABS: ADD MAN DIFF? NO
[2017-10-20 06:06] LABS: WHITE BLOOD COUNT 8.8 10^3/ul (4.8-10.8)
[2017-10-20 06:06] LABS: BASOPHILS % 0.5 % (0.0-2.0); EOSINOPHILS # 0.2 10^3/ul (0.0-0.5); EOSINOPHILS % 2.6 % (0.0-7.0); HEMATOCRIT 26.7 % (42.0-52.0); HEMOGLOBIN 8.4 g/dl (14.0-18.0); LYMPHOCYTES % 10.9 % (15.0-51.0); MEAN CORPUSCULAR HEMOGLOBIN 30.7 pg (29.0-33.0); MEAN CORPUSCULAR HGB CONC 31.5 g/dl (32.0-37.0); MEAN CORPUSCULAR VOLUME 97.4 fl (82.0-101.0); MEAN PLATELET VOLUME 11.2 fl (7.4-10.4); MONOCYTES % 11.2 % (0.0-11.0); NEUTROPHIL # 6.4 10^3/ul (1.6-7.5); NEUTROPHILS % 72.6 % (39.0-77.0); PLATELET COUNT 384 10^3/UL (140-415); RED BLOOD COUNT 2.74 10^6/ul (4.70-6.10); RED CELL DISTRIBUTION WIDTH 14.6 % (11.5-14.5)
[2017-10-20 06:34] LABS: ANION GAP 9 (8-16); BLOOD UREA NITROGEN 24 mg/dl (7-20); CALCIUM 8.2 mg/dl (8.4-10.2); CARBON DIOXIDE 32 mmol/L (21-31); CHLORIDE 105 mmol/L (97-110); CREATININE 0.86 mg/dl (0.61-1.24); GLUCOSE 125 mg/dl (70-220); MAGNESIUM 1.8 mg/dl (1.7-2.5); PHOSPHORUS 3.3 mg/dl (2.5-4.9); POTASSIUM 4.3 mmol/L (3.5-5.1); SODIUM 142 mmol/L (135-144)
[2017-10-20] MEDS: LACTOBACILLUS RHAMNOSUS CAP PO ×2 (08:30→22:34)
[2017-10-20] MEDS: CREON (12k-38k-60k) 1 CAP PO ×3 (08:30→17:59)
[2017-10-20] MEDS: FAT EMULSION 20% 250 ML IV (17:59)
[2017-10-20] MEDS: TAMSULOSIN (SR) 0.4 MG CAP PO (22:34)
[2017-10-20] MEDS: BETHANECHOL 10 MG TAB PO (22:43)
[2017-10-21] MEDS: VANCOMYCIN HCL 250 MG/5ML POSYG PO ×5 (01:29→23:13)
[2017-10-21] MEDS: metroNIDAZOLE 500 MG/NS (PMX) 100 ML IVPB ×5 (01:30→23:11)
[2017-10-21] MEDS: PANTOPRAZOLE 40 MG INJ IV (05:34)
[2017-10-21] MEDS: HEPARIN 5,000 UNIT/0.5 ML VIAL SC ×3 (05:35→21:20)
[2017-10-21] MEDS: ACCU-CHEK XX ×5 (05:45→23:22)
[2017-10-21] MEDS: TPN 1,000 ML IV ×2 (06:36→17:35)
[2017-10-21 06:38] LABS: ADD MAN DIFF? NO
[2017-10-21 06:48] LABS: WHITE BLOOD COUNT 8.1 10^3/ul (4.8-10.8)
[2017-10-21 06:48] LABS: BASOPHILS % 0.5 % (0.0-2.0); EOSINOPHILS # 0.2 10^3/ul (0.0-0.5); EOSINOPHILS % 2.6 % (0.0-7.0); HEMOGLOBIN 8.2 g/dl (14.0-18.0); LYMPHOCYTES # 0.8 10^3/ul (0.8-2.9); LYMPHOCYTES % 9.8 % (15.0-51.0); MEAN CORPUSCULAR HEMOGLOBIN 30.5 pg (29.0-33.0); MEAN CORPUSCULAR HGB CONC 31.5 g/dl (32.0-37.0); MEAN CORPUSCULAR VOLUME 96.7 fl (82.0-101.0); MEAN PLATELET VOLUME 11.2 fl (7.4-10.4); MONOCYTE # 1.1 10^3/ul (0.3-0.9); MONOCYTES % 12.9 % (0.0-11.0); NEUTROPHIL # 5.9 10^3/ul (1.6-7.5); NEUTROPHILS % 71.9 % (39.0-77.0); PLATELET COUNT 463 10^3/UL (140-415); RED BLOOD COUNT 2.69 10^6/ul (4.70-6.10); RED CELL DISTRIBUTION WIDTH 14.5 % (11.5-14.5)
[2017-10-21 07:11] LABS: ANION GAP 10 (8-16); BLOOD UREA NITROGEN 22 mg/dl (7-20); CALCIUM 8.3 mg/dl (8.4-10.2); CARBON DIOXIDE 32 mmol/L (21-31); CHLORIDE 105 mmol/L (97-110); GLUCOSE 141 mg/dl (70-220); MAGNESIUM 1.8 mg/dl (1.7-2.5); PHOSPHORUS 3.5 mg/dl (2.5-4.9); POTASSIUM 4.1 mmol/L (3.5-5.1); SODIUM 143 mmol/L (135-144); TRIGLYCERIDES 166 mg/dl (0-149)
[2017-10-21] MEDS: CREON (12k-38k-60k) 1 CAP PO ×3 (08:22→17:35)
[2017-10-21] MEDS: LACTOBACILLUS RHAMNOSUS CAP PO ×2 (08:22→21:20)
[2017-10-21] MEDS: VALSARTAN 160 MG TAB PO (08:23)
[2017-10-21] MEDS: BETHANECHOL 10 MG TAB PO ×3 (08:26→21:20)
[2017-10-21] MEDS: FUROSEMIDE 40 MG INJ IV (14:24)
[2017-10-21] MEDS: MAGNESIUM SULFATE 2 GM/50 ML 50 ML IVPB (14:24)
[2017-10-21] MEDS: FAT EMULSION 20% 250 ML IV (16:15)
[2017-10-21] MEDS: TAMSULOSIN (SR) 0.4 MG CAP PO (21:20)
[2017-10-22 05:26] LABS: ADD MAN DIFF? NO
[2017-10-22 05:35] LABS: BASOPHILS % 0.4 % (0.0-2.0); EOSINOPHILS # 0.2 10^3/ul (0.0-0.5); EOSINOPHILS % 2.6 % (0.0-7.0); HEMATOCRIT 24.6 % (42.0-52.0); HEMOGLOBIN 7.8 g/dl (14.0-18.0); LYMPHOCYTES # 0.8 10^3/ul (0.8-2.9); LYMPHOCYTES % 8.7 % (15.0-51.0); MEAN CORPUSCULAR HEMOGLOBIN 30.7 pg (29.0-33.0); MEAN CORPUSCULAR HGB CONC 31.7 g/dl (32.0-37.0); MEAN CORPUSCULAR VOLUME 96.9 fl (82.0-101.0); MEAN PLATELET VOLUME 11.4 fl (7.4-10.4); MONOCYTE # 1.2 10^3/ul (0.3-0.9); NEUTROPHIL # 6.7 10^3/ul (1.6-7.5); NEUTROPHILS % 73.7 % (39.0-77.0); PLATELET COUNT 477 10^3/UL (140-415); RED BLOOD COUNT 2.54 10^6/ul (4.70-6.10); RED CELL DISTRIBUTION WIDTH 14.6 % (11.5-14.5)
[2017-10-22 05:35] LABS: WHITE BLOOD COUNT 9.1 10^3/ul (4.8-10.8)
[2017-10-22 05:44] LABS: PHOSPHORUS 3.7 mg/dl (2.5-4.9)
[2017-10-22 05:54] LABS: ANION GAP 11 (8-16); BLOOD UREA NITROGEN 26 mg/dl (7-20); CALCIUM 8.3 mg/dl (8.4-10.2); CARBON DIOXIDE 31 mmol/L (21-31); CHLORIDE 105 mmol/L (97-110); CREATININE 0.94 mg/dl (0.61-1.24); GLUCOSE 157 mg/dl (70-220); SODIUM 143 mmol/L (135-144)
[2017-10-22] MEDS: metroNIDAZOLE 500 MG/NS (PMX) 100 ML IVPB ×4 (05:55→23:20)
[2017-10-22] MEDS: TPN 1,000 ML IV ×2 (05:55→20:18)
[2017-10-22] MEDS: ACCU-CHEK XX ×4 (06:00→23:49)
[2017-10-22] MEDS: PANTOPRAZOLE 40 MG INJ IV (06:00)
[2017-10-22] MEDS: VANCOMYCIN HCL 250 MG/5ML POSYG PO ×4 (06:00→23:19)
[2017-10-22] MEDS: HEPARIN 5,000 UNIT/0.5 ML VIAL SC ×3 (06:03→23:19)
[2017-10-22] MEDS: CREON (12k-38k-60k) 1 CAP PO ×3 (07:35→17:50)
[2017-10-22] MEDS: FUROSEMIDE 40 MG TAB PO (09:36)
[2017-10-22] MEDS: BETHANECHOL 10 MG TAB PO ×3 (09:36→20:16)
[2017-10-22] MEDS: VALSARTAN 160 MG TAB PO (09:36)
[2017-10-22] MEDS: LACTOBACILLUS RHAMNOSUS CAP PO ×2 (09:36→20:16)
[2017-10-22] MEDS: FAT EMULSION 20% 250 ML IV (16:26)
[2017-10-22] MEDS: TAMSULOSIN (SR) 0.4 MG CAP PO (20:16)
[2017-10-23] MEDS: metroNIDAZOLE 500 MG/NS (PMX) 100 ML IVPB ×3 (05:13→17:48)
[2017-10-23] MEDS: PANTOPRAZOLE 40 MG INJ IV (05:13)
[2017-10-23] MEDS: HEPARIN 5,000 UNIT/0.5 ML VIAL SC ×3 (05:14→21:42)
[2017-10-23] MEDS: VANCOMYCIN HCL 250 MG/5ML POSYG PO ×3 (05:16→17:48)
[2017-10-23] MEDS: ACCU-CHEK XX ×3 (05:22→17:56)
[2017-10-23] MEDS ORDERED: ALTEPLASE (CATHFLO) 2 MG INJ CATHETER ×2 (06:30→07:00)
[2017-10-23] MEDS: ALTEPLASE (CATHFLO) 2 MG INJ CATHETER ×3 (06:30→09:00)
[2017-10-23] MEDS: CREON (12k-38k-60k) 1 CAP PO ×3 (07:35→17:48)
[2017-10-23] MEDS: BETHANECHOL 10 MG TAB PO ×2 (09:00→13:24)
[2017-10-23] MEDS: VALSARTAN 160 MG TAB PO (09:00)
[2017-10-23] MEDS: LACTOBACILLUS RHAMNOSUS CAP PO ×2 (09:01→21:41)
[2017-10-23] MEDS: FUROSEMIDE 40 MG TAB PO (09:01)
[2017-10-23] MEDS: TPN 1,000 ML IV ×2 (10:17→21:48)
[2017-10-23 10:38] LABS: ADD MAN DIFF? NO
[2017-10-23 10:47] LABS: BASOPHIL # 0.1 10^3/ul (0.0-0.1); BASOPHILS % 0.6 % (0.0-2.0); EOSINOPHILS # 0.3 10^3/ul (0.0-0.5); EOSINOPHILS % 2.8 % (0.0-7.0); HEMATOCRIT 27.3 % (42.0-52.0); HEMOGLOBIN 8.5 g/dl (14.0-18.0); LYMPHOCYTES # 0.8 10^3/ul (0.8-2.9); LYMPHOCYTES % 8.5 % (15.0-51.0); MEAN CORPUSCULAR HEMOGLOBIN 30.5 pg (29.0-33.0); MEAN CORPUSCULAR HGB CONC 31.1 g/dl (32.0-37.0); MEAN CORPUSCULAR VOLUME 97.8 fl (82.0-101.0); MEAN PLATELET VOLUME 11.2 fl (7.4-10.4); MONOCYTES % 11.6 % (0.0-11.0); NEUTROPHIL # 6.8 10^3/ul (1.6-7.5); NEUTROPHILS % 75.6 % (39.0-77.0); PLATELET COUNT 382 10^3/UL (140-415); RED BLOOD COUNT 2.79 10^6/ul (4.70-6.10); RED CELL DISTRIBUTION WIDTH 14.6 % (11.5-14.5)
[2017-10-23 10:47] LABS: WHITE BLOOD COUNT 8.9 10^3/ul (4.8-10.8)
[2017-10-23 11:03] LABS: MAGNESIUM 1.7 mg/dl (1.7-2.5)
[2017-10-23 11:03] LABS: PHOSPHORUS 3.7 mg/dl (2.5-4.9)
[2017-10-23 11:04] LABS: ANION GAP 13 (8-16); BLOOD UREA NITROGEN 25 mg/dl (7-20); CALCIUM 8.3 mg/dl (8.4-10.2); CARBON DIOXIDE 28 mmol/L (21-31); CHLORIDE 106 mmol/L (97-110); GLUCOSE 158 mg/dl (70-220); POTASSIUM 4.6 mmol/L (3.5-5.1); SODIUM 142 mmol/L (135-144)
[2017-10-23] MEDS: FAT EMULSION 20% 250 ML IV (15:58)
[2017-10-23] MEDS: BETHANECHOL 25 MG TAB PO (21:41)
[2017-10-23] MEDS: TAMSULOSIN (SR) 0.4 MG CAP PO (21:41)
[2017-10-24] MEDS: VANCOMYCIN HCL 250 MG/5ML POSYG PO ×4 (00:34→17:00)
[2017-10-24] MEDS: metroNIDAZOLE 500 MG/NS (PMX) 100 ML IVPB ×4 (00:34→17:03)
[2017-10-24] MEDS: ACCU-CHEK XX ×4 (05:08→17:00)
[2017-10-24] MEDS: HEPARIN 5,000 UNIT/0.5 ML VIAL SC ×3 (05:25→21:50)
[2017-10-24] MEDS: PANTOPRAZOLE 40 MG INJ IV (05:25)
[2017-10-24 06:40] LABS: ADD MAN DIFF? NO
[2017-10-24 06:40] LABS: WHITE BLOOD COUNT 9.4 10^3/ul (4.8-10.8)
[2017-10-24 06:41] LABS: ABNORMAL IP MESSAGE 1; BASOPHILS % 0.4 % (0.0-2.0); EOSINOPHILS # 0.3 10^3/ul (0.0-0.5); EOSINOPHILS % 3.2 % (0.0-7.0); HEMATOCRIT 21.6 % (42.0-52.0); LYMPHOCYTES # 1.1 10^3/ul (0.8-2.9); LYMPHOCYTES % 11.6 % (15.0-51.0); MEAN CORPUSCULAR HEMOGLOBIN 29.8 pg (29.0-33.0); MEAN CORPUSCULAR HGB CONC 30.1 g/dl (32.0-37.0); MEAN CORPUSCULAR VOLUME 99.1 fl (82.0-101.0); MEAN PLATELET VOLUME 11.4 fl (7.4-10.4); MONOCYTE # 1.2 10^3/ul (0.3-0.9); MONOCYTES % 12.5 % (0.0-11.0); NEUTROPHIL # 6.7 10^3/ul (1.6-7.5); PLATELET COUNT 488 10^3/UL (140-415); POSITIVE DIFF @See below; RED BLOOD COUNT 2.18 10^6/ul (4.70-6.10); RED CELL DISTRIBUTION WIDTH 14.7 % (11.5-14.5)
[2017-10-24 06:48] LABS: HEMOGLOBIN 6.5 g/dl (14.0-18.0)
[2017-10-24 07:17] LABS: ANION GAP 11 (8-16); BLOOD UREA NITROGEN 29 mg/dl (7-20); CALCIUM 8.4 mg/dl (8.4-10.2); CARBON DIOXIDE 28 mmol/L (21-31); CHLORIDE 108 mmol/L (97-110); CREATININE 0.89 mg/dl (0.61-1.24); GLUCOSE 207 mg/dl (70-220); MAGNESIUM 1.9 mg/dl (1.7-2.5); PHOSPHORUS 3.5 mg/dl (2.5-4.9); POTASSIUM 4.4 mmol/L (3.5-5.1); SODIUM 143 mmol/L (135-144); TRIGLYCERIDES 95 mg/dl (0-149)
[2017-10-24] MEDS: CREON (12k-38k-60k) 1 CAP PO ×3 (07:35→16:57)
[2017-10-24] MEDS: LACTOBACILLUS RHAMNOSUS CAP PO ×2 (08:34→21:50)
[2017-10-24] MEDS: VALSARTAN 160 MG TAB PO (08:34)
[2017-10-24] MEDS: BETHANECHOL 25 MG TAB PO ×3 (08:35→21:50)
[2017-10-24] MEDS: FUROSEMIDE 40 MG TAB PO (09:00)
[2017-10-24 09:16] LABS: EOSINOPHILS % (M) 4 % (0-7); LYMPHOCYTES % (M) 11 % (15-51); MONOCYTE #M 0.7 10^3/ul (0.3-0.9); MONOCYTES % (M) 8 % (0-11); PLATELET ESTIMATE NORMAL; POIKILOCYTOSIS 1+ (0-0); POLYCHROMASIA 1+ (0-0); SEGMENTED NEUTROPHILS (M) % 77 % (39-77); SMUDGE%M 3 % (0-0)
[2017-10-24] MEDS: TPN 1,000 ML IV ×2 (09:55→21:52)
[2017-10-24 13:19] LABS: IMMEDIATE SPIN CROSSMATCH 1 2
[2017-10-24] MEDS: FAT EMULSION 20% 250 ML IV (16:38)
[2017-10-24] MEDS: FUROSEMIDE 20 MG INJ IV (16:39)
[2017-10-24] MEDS: TAMSULOSIN (SR) 0.4 MG CAP PO (21:50)
[2017-10-25] MEDS: metroNIDAZOLE 500 MG/NS (PMX) 100 ML IVPB ×4 (00:39→17:21)
[2017-10-25] MEDS: VANCOMYCIN HCL 250 MG/5ML POSYG PO ×4 (00:39→17:21)
[2017-10-25] MEDS: HEPARIN 5,000 UNIT/0.5 ML VIAL SC ×3 (06:00→21:10)
[2017-10-25] MEDS: ACCU-CHEK XX ×4 (06:00→17:02)
[2017-10-25] MEDS: PANTOPRAZOLE 40 MG INJ IV (06:20)
[2017-10-25 06:46] LABS: ADD MAN DIFF? NO
[2017-10-25 07:00] LABS: BASOPHIL # 0.1 10^3/ul (0.0-0.1); BASOPHILS % 0.6 % (0.0-2.0); EOSINOPHILS # 0.3 10^3/ul (0.0-0.5); EOSINOPHILS % 3.7 % (0.0-7.0); HEMATOCRIT 30.7 % (42.0-52.0); HEMOGLOBIN 9.7 g/dl (14.0-18.0); LYMPHOCYTES # 0.8 10^3/ul (0.8-2.9); LYMPHOCYTES % 9.7 % (15.0-51.0); MEAN CORPUSCULAR HGB CONC 31.6 g/dl (32.0-37.0); MEAN PLATELET VOLUME 11.4 fl (7.4-10.4); MONOCYTE # 1.1 10^3/ul (0.3-0.9); MONOCYTES % 13.6 % (0.0-11.0); NEUTROPHILS % 71.2 % (39.0-77.0); PLATELET COUNT 403 10^3/UL (140-415); RED BLOOD COUNT 3.23 10^6/ul (4.70-6.10)
[2017-10-25 07:00] LABS: WHITE BLOOD COUNT 8.4 10^3/ul (4.8-10.8)
[2017-10-25 07:14] LABS: ANION GAP 9 (8-16); BLOOD UREA NITROGEN 27 mg/dl (7-20); CALCIUM 8.5 mg/dl (8.4-10.2); CARBON DIOXIDE 28 mmol/L (21-31); CHLORIDE 110 mmol/L (97-110); CREATININE 0.83 mg/dl (0.61-1.24); GLUCOSE 158 mg/dl (70-220); PHOSPHORUS 3.4 mg/dl (2.5-4.9); POTASSIUM 4.1 mmol/L (3.5-5.1); SODIUM 143 mmol/L (135-144)
[2017-10-25] MEDS: CREON (12k-38k-60k) 1 CAP PO ×3 (07:35→17:21)
[2017-10-25] MEDS: VALSARTAN 160 MG TAB PO (09:00)
[2017-10-25] MEDS: BETHANECHOL 25 MG TAB PO ×3 (09:00→21:08)
[2017-10-25] MEDS: LACTOBACILLUS RHAMNOSUS CAP PO ×2 (09:00→21:08)
[2017-10-25] MEDS ORDERED: IOHEXOL 300MG/ML 30 ML BTL (12:09)
[2017-10-25] MEDS: INDOMETHACIN 50 MG SUPP PR (12:30)
[2017-10-25] MEDS: TPN 1,000 ML IV (13:06)
[2017-10-25] MEDS ORDERED: predniSONE 20 MG TAB PO ×2 (16:00→21:00)
[2017-10-25] MEDS: FAT EMULSION 20% 250 ML IV (16:03)
[2017-10-25] MEDS: predniSONE 20 MG TAB PO (16:03)
[2017-10-25] MEDS: TAMSULOSIN (SR) 0.4 MG CAP PO (21:08)
[2017-10-25] MEDS: METHYLPREDNISOLONE 40 MG INJ IV (21:08)
[2017-10-26] MEDS: TPN 1,000 ML IV ×2 (00:03→13:05)
[2017-10-26] MEDS: metroNIDAZOLE 500 MG/NS (PMX) 100 ML IVPB ×4 (00:03→17:21)
[2017-10-26] MEDS: ACCU-CHEK XX ×4 (00:04→17:21)
[2017-10-26] MEDS: VANCOMYCIN HCL 250 MG/5ML POSYG PO ×4 (00:04→17:20)
[2017-10-26] MEDS: PANTOPRAZOLE 40 MG INJ IV (05:32)
[2017-10-26] MEDS: METHYLPREDNISOLONE 40 MG INJ IV ×3 (05:32→21:15)
[2017-10-26] MEDS: HEPARIN 5,000 UNIT/0.5 ML VIAL SC ×3 (05:35→21:14)
[2017-10-26 06:57] LABS: ADD MAN DIFF? NO
[2017-10-26 07:06] LABS: WHITE BLOOD COUNT 7.8 10^3/ul (4.8-10.8)
[2017-10-26 07:07] LABS: ABNORMAL IP MESSAGE 1; BASOPHILS % 0.1 % (0.0-2.0); HEMOGLOBIN 10.2 g/dl (14.0-18.0); LYMPHOCYTES # 0.6 10^3/ul (0.8-2.9); LYMPHOCYTES % 7.3 % (15.0-51.0); MEAN CORPUSCULAR HEMOGLOBIN 29.3 pg (29.0-33.0); MEAN CORPUSCULAR HGB CONC 30.9 g/dl (32.0-37.0); MEAN CORPUSCULAR VOLUME 94.8 fl (82.0-101.0); MEAN PLATELET VOLUME 11.3 fl (7.4-10.4); MONOCYTE # 0.5 10^3/ul (0.3-0.9); MONOCYTES % 5.7 % (0.0-11.0); NEUTROPHIL # 6.8 10^3/ul (1.6-7.5); NEUTROPHILS % 86.1 % (39.0-77.0); PLATELET COUNT 425 10^3/UL (140-415); POSITIVE DIFF @See below; RED BLOOD COUNT 3.48 10^6/ul (4.70-6.10); RED CELL DISTRIBUTION WIDTH 15.5 % (11.5-14.5)
[2017-10-26 07:22] LABS: OCCULT BLOOD STOOL NEGATIVE (NEGATIVE)
[2017-10-26 07:30] LABS: ANION GAP 13 (8-16); BLOOD UREA NITROGEN 28 mg/dl (7-20); CALCIUM 8.7 mg/dl (8.4-10.2); CARBON DIOXIDE 26 mmol/L (21-31); CHLORIDE 110 mmol/L (97-110); CREATININE 0.91 mg/dl (0.61-1.24); GLUCOSE 202 mg/dl (70-220); MAGNESIUM 2.1 mg/dl (1.7-2.5); PHOSPHORUS 3.2 mg/dl (2.5-4.9); POTASSIUM 4.2 mmol/L (3.5-5.1); SODIUM 145 mmol/L (135-144)
[2017-10-26] MEDS: CREON (12k-38k-60k) 1 CAP PO ×3 (09:04→16:50)
[2017-10-26] MEDS: VALSARTAN 160 MG TAB PO (09:04)
[2017-10-26] MEDS: BETHANECHOL 25 MG TAB PO ×3 (09:04→21:15)
[2017-10-26] MEDS: LACTOBACILLUS RHAMNOSUS CAP PO ×2 (09:05→21:15)
[2017-10-26] MEDS: FUROSEMIDE 20 MG TAB PO (09:05)
[2017-10-26] MEDS: FAT EMULSION 20% 250 ML IV (16:50)
[2017-10-26] MEDS: INSULIN DETEMIR [LEVEMIR] 3ML CART SC (21:14)
[2017-10-26] MEDS: TAMSULOSIN (SR) 0.4 MG CAP PO (21:16)
[2017-10-27] MEDS: TPN 1,000 ML IV ×2 (00:41→13:41)
[2017-10-27] MEDS: metroNIDAZOLE 500 MG/NS (PMX) 100 ML IVPB ×4 (00:41→18:00)
[2017-10-27] MEDS: ACCU-CHEK XX ×4 (00:42→18:00)
[2017-10-27] MEDS: VANCOMYCIN HCL 250 MG/5ML POSYG PO ×4 (00:42→18:00)
[2017-10-27] MEDS: PANTOPRAZOLE 40 MG INJ IV (06:16)
[2017-10-27] MEDS: METHYLPREDNISOLONE 40 MG INJ IV ×3 (06:16→20:48)
[2017-10-27] MEDS ORDERED: EPHEDrine SULFATE 50 MG/5 ML SYG (07:00)
[2017-10-27 07:34] LABS: ANION GAP 16 (8-16); BLOOD UREA NITROGEN 34 mg/dl (7-20); CALCIUM 8.8 mg/dl (8.4-10.2); CARBON DIOXIDE 24 mmol/L (21-31); CHLORIDE 110 mmol/L (97-110); CREATININE 0.93 mg/dl (0.61-1.24); GLUCOSE 236 mg/dl (70-220); MAGNESIUM 2.2 mg/dl (1.7-2.5); PHOSPHORUS 3.6 mg/dl (2.5-4.9); POTASSIUM 4.1 mmol/L (3.5-5.1); SODIUM 146 mmol/L (135-144)
[2017-10-27] MEDS: CREON (12k-38k-60k) 1 CAP PO ×3 (07:35→17:10)
[2017-10-27] MEDS: BETHANECHOL 25 MG TAB PO ×3 (09:00→20:48)
[2017-10-27] MEDS: LACTOBACILLUS RHAMNOSUS CAP PO ×2 (09:00→20:48)
[2017-10-27] MEDS: FUROSEMIDE 20 MG TAB PO (09:37)
[2017-10-27] MEDS: VALSARTAN 160 MG TAB PO (09:37)
[2017-10-27] MEDS ORDERED: IOHEXOL 300MG/ML 30 ML BTL ×2 (16:16)
[2017-10-27] MEDS: FAT EMULSION 20% 250 ML IV (16:28)
[2017-10-27] MEDS: hydrALAzine 20 MG INJ IV (16:30)
[2017-10-27] MEDS ORDERED: ETOMIDATE 20 MG INJ (17:16)
[2017-10-27] MEDS ORDERED: ROCURONIUM 50 MG INJ (17:16)
[2017-10-27] MEDS ORDERED: FENTAnyl 50 MCG/ML VIAL (17:16)
[2017-10-27] MEDS ORDERED: METOCLOPRAMIDE 10 MG INJ (17:19)
[2017-10-27] MEDS ORDERED: ONDANSETRON 4 MG INJ (17:19)
[2017-10-27] MEDS ORDERED: DIPHENHYDRAMINE 50 MG INJ (17:19)
[2017-10-27] MEDS ORDERED: hydrALAzine 20 MG INJ (17:33)
[2017-10-27] MEDS ORDERED: PROPOFOL 20 ML (17:39)
[2017-10-27] MEDS: INSULIN DETEMIR [LEVEMIR] 3ML CART SC (20:48)
[2017-10-27] MEDS: TAMSULOSIN (SR) 0.4 MG CAP PO (20:48)
[2017-10-28] MEDS: metroNIDAZOLE 500 MG/NS (PMX) 100 ML IVPB ×4 (00:54→17:31)
[2017-10-28] MEDS: VANCOMYCIN HCL 250 MG/5ML POSYG PO ×4 (00:54→17:32)
[2017-10-28] MEDS: morphine LIQ (10 MG/5 ML) CUP PO (00:55)
[2017-10-28] MEDS: ACCU-CHEK XX ×6 (01:04→21:00)
[2017-10-28] MEDS: TPN 1,000 ML IV ×3 (01:30→20:18)
[2017-10-28] MEDS: PANTOPRAZOLE 40 MG INJ IV (05:49)
[2017-10-28] MEDS: METHYLPREDNISOLONE 40 MG INJ IV ×3 (05:50→21:59)
[2017-10-28] MEDS: HYDROCODONE/APAP (5/325) TAB PO (06:13)
[2017-10-28 06:57] LABS: ALANINE AMINOTRANSFERASE 26 IU/L (13-69); ALBUMIN 2.5 g/dl (3.3-4.9); ALBUMIN/GLOBULIN RATIO 0.86; ALKALINE PHOSPHATASE 62 IU/L (42-121); ANION GAP 11 (8-16); ASPARTATE AMINO TRANSFERASE 11 IU/L (15-46); BLOOD UREA NITROGEN 43 mg/dl (7-20); CALCIUM 8.6 mg/dl (8.4-10.2); CARBON DIOXIDE 25 mmol/L (21-31); CHLORIDE 114 mmol/L (97-110); CREATININE 1.04 mg/dl (0.61-1.24); GLUCOSE 249 mg/dl (70-220); MAGNESIUM 2.2 mg/dl (1.7-2.5); PHOSPHORUS 4.2 mg/dl (2.5-4.9); POTASSIUM 4.5 mmol/L (3.5-5.1); SODIUM 145 mmol/L (135-144); TOTAL PROTEIN 5.4 g/dl (6.1-8.1); TRIGLYCERIDES 241 mg/dl (0-149)
[2017-10-28 07:27] LABS: PREALBUMIN 26.6 mg/dl (17.6-36.0)
[2017-10-28] MEDS: LACTOBACILLUS RHAMNOSUS CAP PO ×2 (08:44→20:16)
[2017-10-28] MEDS: CREON (12k-38k-60k) 1 CAP PO ×3 (08:44→17:30)
[2017-10-28] MEDS: FUROSEMIDE 20 MG TAB PO (08:44)
[2017-10-28] MEDS: VALSARTAN 160 MG TAB PO (08:45)
[2017-10-28] MEDS: BETHANECHOL 25 MG TAB PO ×3 (08:45→20:16)
[2017-10-28] MEDS: INSULIN DETEMIR [LEVEMIR] 3ML CART SC ×2 (09:40→20:33)
[2017-10-28] MEDS: INSULIN ASPART [NOVOLOG] 3 ML PEN SC ×3 (13:28→20:35)
[2017-10-28] MEDS ORDERED: GLUCOSE GEL 15 GRAM TUBE BUCCAL (13:30)
[2017-10-28] MEDS ORDERED: GLUCOSE GEL 15 GRAM TUBE PO ×2 (13:30)
[2017-10-28] MEDS ORDERED: GLUCAGON 1 MG INJ IM (13:30)
[2017-10-28] MEDS ORDERED: DEXTROSE 50% 50 ML SYRINGE IV ×2 (13:30)
[2017-10-28] MEDS: FAT EMULSION 20% 250 ML IV (16:10)
[2017-10-28] MEDS: ERTAPENEM SODIUM 1 GM in SOD CHLORIDE 0.9% 100 ML IVPB (16:54)
[2017-10-28] MEDS: TAMSULOSIN (SR) 0.4 MG CAP PO (20:17)
[2017-10-29] MEDS: metroNIDAZOLE 500 MG/NS (PMX) 100 ML IVPB ×4 (00:32→17:33)
[2017-10-29] MEDS: VANCOMYCIN HCL 250 MG/5ML POSYG PO ×4 (00:32→17:34)
[2017-10-29] MEDS: INSULIN ASPART [NOVOLOG] 3 ML PEN SC ×6 (00:48→21:58)
[2017-10-29] MEDS: ACCU-CHEK XX ×6 (01:00→21:00)
[2017-10-29 06:14] LABS: ADD MAN DIFF? NO
[2017-10-29 06:20] LABS: WHITE BLOOD COUNT 9.6 10^3/ul (4.8-10.8)
[2017-10-29 06:20] LABS: ABNORMAL IP MESSAGE 1; HEMATOCRIT 33.5 % (42.0-52.0); HEMOGLOBIN 10.3 g/dl (14.0-18.0); LYMPHOCYTES # 0.5 10^3/ul (0.8-2.9); LYMPHOCYTES % 5.6 % (15.0-51.0); MEAN CORPUSCULAR HGB CONC 30.7 g/dl (32.0-37.0); MEAN CORPUSCULAR VOLUME 97.7 fl (82.0-101.0); MEAN PLATELET VOLUME 12.1 fl (7.4-10.4); MONOCYTE # 0.7 10^3/ul (0.3-0.9); MONOCYTES % 7.3 % (0.0-11.0); NEUTROPHIL # 8.2 10^3/ul (1.6-7.5); NEUTROPHILS % 85.8 % (39.0-77.0); PLATELET COUNT 308 10^3/UL (140-415); POSITIVE DIFF @See below; RED BLOOD COUNT 3.43 10^6/ul (4.70-6.10); RED CELL DISTRIBUTION WIDTH 15.6 % (11.5-14.5)
[2017-10-29] MEDS: METHYLPREDNISOLONE 40 MG INJ IV ×3 (06:39→22:03)
[2017-10-29] MEDS: PANTOPRAZOLE 40 MG INJ IV (06:39)
[2017-10-29 06:47] LABS: LIPASE 353 U/L (23-300)
[2017-10-29 06:47] LABS: AMYLASE 232 U/L (11-123)
[2017-10-29 06:55] LABS: ANION GAP 6 (8-16); BLOOD UREA NITROGEN 46 mg/dl (7-20); CALCIUM 8.6 mg/dl (8.4-10.2); CARBON DIOXIDE 25 mmol/L (21-31); CHLORIDE 113 mmol/L (97-110); CREATININE 0.99 mg/dl (0.61-1.24); GLUCOSE 216 mg/dl (70-220); PHOSPHORUS 3.5 mg/dl (2.5-4.9); POTASSIUM 4.5 mmol/L (3.5-5.1); SODIUM 139 mmol/L (135-144)
[2017-10-29] MEDS: FUROSEMIDE 20 MG TAB PO (07:07)
[2017-10-29 07:50] LABS: MAGNESIUM 2.1 mg/dl (1.7-2.5)
[2017-10-29] MEDS: CREON (12k-38k-60k) 1 CAP PO ×3 (08:33→17:18)
[2017-10-29] MEDS: LACTOBACILLUS RHAMNOSUS CAP PO ×2 (08:33→21:43)
[2017-10-29] MEDS: BETHANECHOL 25 MG TAB PO ×3 (08:33→21:43)
[2017-10-29] MEDS: VALSARTAN 160 MG TAB PO ×2 (08:35→22:01)
[2017-10-29] MEDS: INSULIN DETEMIR [LEVEMIR] 3ML CART SC ×2 (08:41→21:57)
[2017-10-29] MEDS: TPN 1,000 ML IV ×2 (08:57→22:24)
[2017-10-29] MEDS: ERTAPENEM SODIUM 1 GM in SOD CHLORIDE 0.9% 100 ML IVPB (16:19)
[2017-10-29] MEDS: FAT EMULSION 20% 250 ML IV (16:19)
[2017-10-29] MEDS: TAMSULOSIN (SR) 0.4 MG CAP PO (21:43)
[2017-10-30] MEDS: ACCU-CHEK XX ×6 (01:00→20:43)
[2017-10-30] MEDS: metroNIDAZOLE 500 MG/NS (PMX) 100 ML IVPB ×4 (01:13→18:08)
[2017-10-30] MEDS: VANCOMYCIN HCL 250 MG/5ML POSYG PO ×4 (01:13→18:08)
[2017-10-30] MEDS: INSULIN ASPART [NOVOLOG] 3 ML PEN SC ×6 (01:14→20:43)
[2017-10-30] MEDS: hydrALAzine 20 MG INJ IV (01:34)
[2017-10-30 06:09] LABS: ADD MAN DIFF? NO
[2017-10-30 06:20] LABS: WHITE BLOOD COUNT 10.1 10^3/ul (4.8-10.8)
[2017-10-30 06:20] LABS: BASOPHILS % 0.1 % (0.0-2.0); HEMATOCRIT 33.1 % (42.0-52.0); HEMOGLOBIN 10.3 g/dl (14.0-18.0); LYMPHOCYTES # 0.6 10^3/ul (0.8-2.9); LYMPHOCYTES % 5.9 % (15.0-51.0); MEAN CORPUSCULAR HEMOGLOBIN 29.8 pg (29.0-33.0); MEAN CORPUSCULAR HGB CONC 31.1 g/dl (32.0-37.0); MEAN CORPUSCULAR VOLUME 95.7 fl (82.0-101.0); MEAN PLATELET VOLUME 12.4 fl (7.4-10.4); MONOCYTE # 0.9 10^3/ul (0.3-0.9); MONOCYTES % 8.7 % (0.0-11.0); NEUTROPHIL # 8.5 10^3/ul (1.6-7.5); NEUTROPHILS % 83.8 % (39.0-77.0); PLATELET COUNT 293 10^3/UL (140-415); RED BLOOD COUNT 3.46 10^6/ul (4.70-6.10); RED CELL DISTRIBUTION WIDTH 15.8 % (11.5-14.5)
[2017-10-30 06:36] LABS: MAGNESIUM 2.1 mg/dl (1.7-2.5)
[2017-10-30 06:38] LABS: ALANINE AMINOTRANSFERASE 29 IU/L (13-69); ALBUMIN 2.5 g/dl (3.3-4.9); ALBUMIN/GLOBULIN RATIO 0.86; ALKALINE PHOSPHATASE 58 IU/L (42-121); AMYLASE 96 U/L (11-123); ANION GAP 5 (8-16); ASPARTATE AMINO TRANSFERASE 10 IU/L (15-46); BILIRUBIN,INDIRECT 0.1 mg/dl (0-1.1); BILIRUBIN,TOTAL 0.1 mg/dl (0.2-1.3); BLOOD UREA NITROGEN 42 mg/dl (7-20); CALCIUM 8.8 mg/dl (8.4-10.2); CARBON DIOXIDE 24 mmol/L (21-31); CHLORIDE 113 mmol/L (97-110); CREATININE 0.91 mg/dl (0.61-1.24); GLUCOSE 243 mg/dl (70-220); LIPASE 249 U/L (23-300); POTASSIUM 4.1 mmol/L (3.5-5.1); SODIUM 138 mmol/L (135-144); TOTAL PROTEIN 5.4 g/dl (6.1-8.1)
[2017-10-30] MEDS: PANTOPRAZOLE 40 MG INJ IV (06:44)
[2017-10-30] MEDS: METHYLPREDNISOLONE 40 MG INJ IV ×2 (06:45→20:39)
[2017-10-30] MEDS: FUROSEMIDE 20 MG TAB PO (06:45)
[2017-10-30 08:36] LABS: TRIGLYCERIDES 156 mg/dl (0-149)
[2017-10-30 08:36] LABS: PHOSPHORUS 3.1 mg/dl (2.5-4.9)
[2017-10-30] MEDS: LACTOBACILLUS RHAMNOSUS CAP PO ×2 (08:57→20:38)
[2017-10-30] MEDS: INSULIN DETEMIR [LEVEMIR] 3ML CART SC ×2 (08:57→20:42)
[2017-10-30] MEDS: CREON (12k-38k-60k) 1 CAP PO ×3 (09:00→18:08)
[2017-10-30] MEDS: VALSARTAN 160 MG TAB PO ×2 (09:00→20:37)
[2017-10-30] MEDS: BETHANECHOL 25 MG TAB PO ×3 (09:01→20:37)
[2017-10-30] MEDS: TPN 1,000 ML IV (16:32)
[2017-10-30] MEDS: FAT EMULSION 20% 250 ML IV (16:33)
[2017-10-30] MEDS: CEFTRIAXONE 1 GM/50 ML (PMX) 50 ML IVPB (16:34)
[2017-10-30] MEDS: TAMSULOSIN (SR) 0.4 MG CAP PO (20:37)
[2017-10-31] MEDS: ACCU-CHEK XX ×6 (01:00→20:46)
[2017-10-31] MEDS: metroNIDAZOLE 500 MG/NS (PMX) 100 ML IVPB ×5 (01:17→23:53)
[2017-10-31] MEDS: VANCOMYCIN HCL 250 MG/5ML POSYG PO ×5 (01:17→23:53)
[2017-10-31] MEDS: INSULIN ASPART [NOVOLOG] 3 ML PEN SC ×6 (01:21→20:45)
[2017-10-31] MEDS: TPN 1,000 ML IV ×3 (04:30→16:36)
[2017-10-31] MEDS: PANTOPRAZOLE 40 MG INJ IV (06:20)
[2017-10-31] MEDS: FUROSEMIDE 20 MG TAB PO (06:38)
[2017-10-31 07:13] LABS: ANION GAP 3 (8-16); BLOOD UREA NITROGEN 39 mg/dl (7-20); CALCIUM 8.8 mg/dl (8.4-10.2); CARBON DIOXIDE 27 mmol/L (21-31); CHLORIDE 113 mmol/L (97-110); CREATININE 0.86 mg/dl (0.61-1.24); GLUCOSE 170 mg/dl (70-220); PHOSPHORUS 3.5 mg/dl (2.5-4.9); POTASSIUM 4.1 mmol/L (3.5-5.1); SODIUM 139 mmol/L (135-144)
[2017-10-31] MEDS: VALSARTAN 160 MG TAB PO ×2 (08:12→20:35)
[2017-10-31] MEDS: BETHANECHOL 25 MG TAB PO ×3 (08:15→20:41)
[2017-10-31] MEDS: CREON (12k-38k-60k) 1 CAP PO ×3 (08:15→17:40)
[2017-10-31] MEDS: LACTOBACILLUS RHAMNOSUS CAP PO ×2 (08:15→20:35)
[2017-10-31] MEDS: INSULIN DETEMIR [LEVEMIR] 3ML CART SC (08:15)
[2017-10-31] MEDS: METHYLPREDNISOLONE 40 MG INJ IV (08:15)
[2017-10-31] MEDS: CEFTRIAXONE 1 GM/50 ML (PMX) 50 ML IVPB (16:43)
[2017-10-31] MEDS: FAT EMULSION 20% 250 ML IV (16:44)
[2017-10-31] MEDS: TAMSULOSIN (SR) 0.4 MG CAP PO (20:35)
[2017-11-01] MEDS: INSULIN ASPART [NOVOLOG] 3 ML PEN SC ×6 (01:00→21:07)
[2017-11-01] MEDS: ACCU-CHEK XX ×6 (01:00→21:00)
[2017-11-01] MEDS: TPN 1,000 ML IV ×2 (01:51→17:36)
[2017-11-01] MEDS: metroNIDAZOLE 500 MG/NS (PMX) 100 ML IVPB ×2 (05:59→12:24)
[2017-11-01] MEDS: PANTOPRAZOLE 40 MG INJ IV (05:59)
[2017-11-01] MEDS: VANCOMYCIN HCL 250 MG/5ML POSYG PO ×2 (06:00→12:24)
[2017-11-01] MEDS: FUROSEMIDE 20 MG TAB PO (06:01)
[2017-11-01] MEDS: CREON (12k-38k-60k) 1 CAP PO ×3 (08:44→16:15)
[2017-11-01] MEDS: LACTOBACILLUS RHAMNOSUS CAP PO ×2 (08:44→21:00)
[2017-11-01] MEDS: BETHANECHOL 25 MG TAB PO ×3 (08:45→21:00)
[2017-11-01] MEDS: VALSARTAN 160 MG TAB PO ×2 (08:45→21:00)
[2017-11-01 08:54] LABS: ADD MAN DIFF? NO
[2017-11-01 09:01] LABS: BASOPHILS % 0.2 % (0.0-2.0); EOSINOPHILS # 0.4 10^3/ul (0.0-0.5); HEMATOCRIT 33.9 % (42.0-52.0); HEMOGLOBIN 10.5 g/dl (14.0-18.0); LYMPHOCYTES # 0.8 10^3/ul (0.8-2.9); LYMPHOCYTES % 7.9 % (15.0-51.0); MEAN CORPUSCULAR HEMOGLOBIN 29.7 pg (29.0-33.0); MEAN CORPUSCULAR VOLUME 95.8 fl (82.0-101.0); MEAN PLATELET VOLUME 12.5 fl (7.4-10.4); MONOCYTE # 1.1 10^3/ul (0.3-0.9); MONOCYTES % 11.8 % (0.0-11.0); NEUTROPHILS % 74.3 % (39.0-77.0); PLATELET COUNT 242 10^3/UL (140-415); RED BLOOD COUNT 3.54 10^6/ul (4.70-6.10); RED CELL DISTRIBUTION WIDTH 15.9 % (11.5-14.5)
[2017-11-01 09:01] LABS: WHITE BLOOD COUNT 9.5 10^3/ul (4.8-10.8)
[2017-11-01 09:19] LABS: ANION GAP 7 (8-16); BLOOD UREA NITROGEN 33 mg/dl (7-20); CALCIUM 8.5 mg/dl (8.4-10.2); CARBON DIOXIDE 27 mmol/L (21-31); CHLORIDE 110 mmol/L (97-110); GLUCOSE 153 mg/dl (70-220); MAGNESIUM 1.8 mg/dl (1.7-2.5); PHOSPHORUS 3.1 mg/dl (2.5-4.9); POTASSIUM 3.3 mmol/L (3.5-5.1); SODIUM 141 mmol/L (135-144)
[2017-11-01] MEDS: CEFTRIAXONE 1 GM/50 ML (PMX) 50 ML IVPB (15:08)
[2017-11-01] MEDS: FAT EMULSION 20% 250 ML IV (16:13)
[2017-11-01] MEDS: TAMSULOSIN (SR) 0.4 MG CAP PO (20:59)
[2017-11-02] MEDS: ACCU-CHEK XX ×6 (01:00→21:05)
[2017-11-02] MEDS: INSULIN ASPART [NOVOLOG] 3 ML PEN SC ×6 (01:26→21:01)
[2017-11-02] MEDS: FUROSEMIDE 20 MG TAB PO (05:32)
[2017-11-02] MEDS: TPN 1,000 ML IV ×2 (05:32→18:25)
[2017-11-02] MEDS: PANTOPRAZOLE 40 MG INJ IV (05:32)
[2017-11-02 05:39] LABS: ADD MAN DIFF? NO
[2017-11-02 05:49] LABS: BASOPHILS % 0.1 % (0.0-2.0); EOSINOPHILS # 0.5 10^3/ul (0.0-0.5); EOSINOPHILS % 5.1 % (0.0-7.0); HEMATOCRIT 32.7 % (42.0-52.0); HEMOGLOBIN 10.4 g/dl (14.0-18.0); LYMPHOCYTES # 0.8 10^3/ul (0.8-2.9); MEAN CORPUSCULAR HEMOGLOBIN 30.1 pg (29.0-33.0); MEAN CORPUSCULAR HGB CONC 31.8 g/dl (32.0-37.0); MEAN CORPUSCULAR VOLUME 94.5 fl (82.0-101.0); MEAN PLATELET VOLUME 12.8 fl (7.4-10.4); MONOCYTE # 1.1 10^3/ul (0.3-0.9); MONOCYTES % 10.6 % (0.0-11.0); NEUTROPHIL # 7.4 10^3/ul (1.6-7.5); NEUTROPHILS % 74.3 % (39.0-77.0); PLATELET COUNT 212 10^3/UL (140-415); RED BLOOD COUNT 3.46 10^6/ul (4.70-6.10); RED CELL DISTRIBUTION WIDTH 15.8 % (11.5-14.5)
[2017-11-02 06:08] LABS: ANION GAP 6 (8-16); BLOOD UREA NITROGEN 31 mg/dl (7-20); CALCIUM 8.1 mg/dl (8.4-10.2); CARBON DIOXIDE 26 mmol/L (21-31); CHLORIDE 111 mmol/L (97-110); CREATININE 0.84 mg/dl (0.61-1.24); GLUCOSE 163 mg/dl (70-220); POTASSIUM 3.4 mmol/L (3.5-5.1); SODIUM 140 mmol/L (135-144)
[2017-11-02 06:23] LABS: ANION GAP 8 (8-16); BLOOD UREA NITROGEN 31 mg/dl (7-20); CALCIUM 8.1 mg/dl (8.4-10.2); CARBON DIOXIDE 26 mmol/L (21-31); CHLORIDE 111 mmol/L (97-110); CREATININE 0.82 mg/dl (0.61-1.24); GLUCOSE 158 mg/dl (70-220); MAGNESIUM 1.8 mg/dl (1.7-2.5); POTASSIUM 3.5 mmol/L (3.5-5.1); SODIUM 141 mmol/L (135-144)
[2017-11-02] MEDS: BETHANECHOL 25 MG TAB PO ×3 (08:49→20:59)
[2017-11-02] MEDS: VALSARTAN 160 MG TAB PO ×2 (08:49→20:59)
[2017-11-02] MEDS: CREON (12k-38k-60k) 1 CAP PO ×2 (08:49→12:46)
[2017-11-02] MEDS: LACTOBACILLUS RHAMNOSUS CAP PO ×2 (08:49→20:59)
[2017-11-02] MEDS: POTASSIUM CHLORIDE 100 ML IVPB (14:19)
[2017-11-02] MEDS: FAT EMULSION 20% 250 ML IV (16:10)
[2017-11-02] MEDS: CREON (24K-76K-120K) 1 CAP PO (17:13)
[2017-11-02] MEDS: TAMSULOSIN (SR) 0.4 MG CAP PO (20:59)
[2017-11-03] MEDS: INSULIN ASPART [NOVOLOG] 3 ML PEN SC ×6 (01:10→21:00)
[2017-11-03] MEDS: ACCU-CHEK XX ×6 (01:18→17:35)
[2017-11-03] MEDS: PANTOPRAZOLE 40 MG INJ IV (05:26)
[2017-11-03 05:53] LABS: ADD MAN DIFF? NO
[2017-11-03 05:56] LABS: WHITE BLOOD COUNT 10.9 10^3/ul (4.8-10.8)
[2017-11-03 05:56] LABS: ABNORMAL IP MESSAGE 1; BASOPHILS % 0.2 % (0.0-2.0); EOSINOPHILS # 0.6 10^3/ul (0.0-0.5); EOSINOPHILS % 5.2 % (0.0-7.0); HEMATOCRIT 31.6 % (42.0-52.0); LYMPHOCYTES # 0.9 10^3/ul (0.8-2.9); LYMPHOCYTES % 7.9 % (15.0-51.0); MEAN CORPUSCULAR HEMOGLOBIN 30.1 pg (29.0-33.0); MEAN CORPUSCULAR HGB CONC 31.6 g/dl (32.0-37.0); MEAN CORPUSCULAR VOLUME 95.2 fl (82.0-101.0); MEAN PLATELET VOLUME 13.1 fl (7.4-10.4); MONOCYTE # 1.2 10^3/ul (0.3-0.9); MONOCYTES % 10.9 % (0.0-11.0); PLATELET COUNT 184 10^3/UL (140-415); POSITIVE DIFF @See below; RED BLOOD COUNT 3.32 10^6/ul (4.70-6.10); RED CELL DISTRIBUTION WIDTH 15.9 % (11.5-14.5)
[2017-11-03] MEDS: FUROSEMIDE 20 MG TAB PO (05:59)
[2017-11-03 06:19] LABS: ANION GAP 9 (8-16); BLOOD UREA NITROGEN 35 mg/dl (7-20); CARBON DIOXIDE 26 mmol/L (21-31); CHLORIDE 109 mmol/L (97-110); CREATININE 0.82 mg/dl (0.61-1.24); GLUCOSE 158 mg/dl (70-220); POTASSIUM 3.9 mmol/L (3.5-5.1); SODIUM 140 mmol/L (135-144)
[2017-11-03 06:24] LABS: MAGNESIUM 2.1 mg/dl (1.7-2.5)
[2017-11-03 06:24] LABS: PHOSPHORUS 2.6 mg/dl (2.5-4.9)
[2017-11-03] MEDS: TPN 1,000 ML IV (06:40)
[2017-11-03] MEDS: CREON (24K-76K-120K) 1 CAP PO ×3 (08:20→17:08)
[2017-11-03] MEDS: LACTOBACILLUS RHAMNOSUS CAP PO ×2 (08:20→20:26)
[2017-11-03] MEDS: VALSARTAN 160 MG TAB PO ×2 (08:20→20:26)
[2017-11-03] MEDS: BETHANECHOL 25 MG TAB PO ×3 (08:21→20:26)
[2017-11-03] MEDS: ASPIRIN 81 MG TAB PO (15:47)
[2017-11-03] MEDS: FAT EMULSION 20% 250 ML IV (15:47)
[2017-11-03] MEDS ORDERED: ONDANSETRON 4 MG INJ IV (18:00)
[2017-11-03] MEDS ORDERED: METOCLOPRAMIDE 10 MG INJ IV (18:00)
[2017-11-03] MEDS: TAMSULOSIN (SR) 0.4 MG CAP PO (20:26)
[2017-11-04 05:54] LABS: ADD MAN DIFF? NO
[2017-11-04] MEDS: FUROSEMIDE 20 MG TAB PO (05:54)
[2017-11-04] MEDS: PANTOPRAZOLE (EC) 40 MG TAB PO (05:54)
[2017-11-04 06:01] LABS: ABNORMAL IP MESSAGE 1; BASOPHILS % 0.3 % (0.0-2.0); EOSINOPHILS # 0.6 10^3/ul (0.0-0.5); EOSINOPHILS % 5.4 % (0.0-7.0); HEMATOCRIT 29.1 % (42.0-52.0); MEAN CORPUSCULAR HEMOGLOBIN 29.8 pg (29.0-33.0); MEAN CORPUSCULAR HGB CONC 30.9 g/dl (32.0-37.0); MEAN CORPUSCULAR VOLUME 96.4 fl (82.0-101.0); MEAN PLATELET VOLUME 13.7 fl (7.4-10.4); MONOCYTE # 1.3 10^3/ul (0.3-0.9); MONOCYTES % 11.1 % (0.0-11.0); NEUTROPHIL # 8.8 10^3/ul (1.6-7.5); NEUTROPHILS % 73.6 % (39.0-77.0); PLATELET COUNT 198 10^3/UL (140-415); POSITIVE DIFF @See below; RED BLOOD COUNT 3.02 10^6/ul (4.70-6.10); RED CELL DISTRIBUTION WIDTH 15.9 % (11.5-14.5)
[2017-11-04 06:21] LABS: ANION GAP 6 (8-16); BLOOD UREA NITROGEN 37 mg/dl (7-20); CALCIUM 7.9 mg/dl (8.4-10.2); CARBON DIOXIDE 27 mmol/L (21-31); CHLORIDE 112 mmol/L (97-110); CREATININE 0.91 mg/dl (0.61-1.24); GLUCOSE 108 mg/dl (70-220); MAGNESIUM 2.2 mg/dl (1.7-2.5); PHOSPHORUS 2.8 mg/dl (2.5-4.9); POTASSIUM 4.1 mmol/L (3.5-5.1); SODIUM 141 mmol/L (135-144); TRIGLYCERIDES 96 mg/dl (0-149)
[2017-11-04] MEDS: INSULIN ASPART [NOVOLOG] 3 ML PEN SC ×4 (08:00→21:03)
[2017-11-04] MEDS: BETHANECHOL 25 MG TAB PO ×3 (08:04→20:55)
[2017-11-04] MEDS: CREON (24K-76K-120K) 1 CAP PO ×3 (08:04→17:12)
[2017-11-04] MEDS: VALSARTAN 160 MG TAB PO ×2 (08:05→20:55)
[2017-11-04] MEDS: LACTOBACILLUS RHAMNOSUS CAP PO ×2 (08:05→20:55)
[2017-11-04] MEDS: ASPIRIN 81 MG TAB PO (08:05)
[2017-11-04] MEDS ORDERED: ZOLPIDEM 5 MG TAB PO (18:00)
[2017-11-04] MEDS ORDERED: HYDROCODONE/APAP (5/325) TAB PO ×2 (18:30)
[2017-11-04] MEDS: TAMSULOSIN (SR) 0.4 MG CAP PO (20:55)
[2017-11-05] MEDS: FUROSEMIDE 20 MG TAB PO (05:14)
[2017-11-05] MEDS: PANTOPRAZOLE (EC) 40 MG TAB PO (05:14)
[2017-11-05 05:17] LABS: ADD MAN DIFF? NO
[2017-11-05 05:22] LABS: BASOPHILS % 0.3 % (0.0-2.0); EOSINOPHILS # 0.5 10^3/ul (0.0-0.5); HEMOGLOBIN 9.4 g/dl (14.0-18.0); LYMPHOCYTES # 0.8 10^3/ul (0.8-2.9); MEAN CORPUSCULAR HGB CONC 31.3 g/dl (32.0-37.0); MEAN CORPUSCULAR VOLUME 95.8 fl (82.0-101.0); MEAN PLATELET VOLUME 12.9 fl (7.4-10.4); MONOCYTE # 1.2 10^3/ul (0.3-0.9); MONOCYTES % 11.9 % (0.0-11.0); NEUTROPHIL # 7.3 10^3/ul (1.6-7.5); NEUTROPHILS % 73.6 % (39.0-77.0); PLATELET COUNT 199 10^3/UL (140-415); RED BLOOD COUNT 3.13 10^6/ul (4.70-6.10); RED CELL DISTRIBUTION WIDTH 16.1 % (11.5-14.5)
[2017-11-05 05:22] LABS: WHITE BLOOD COUNT 9.9 10^3/ul (4.8-10.8)
[2017-11-05] MEDS: CREON (24K-76K-120K) 1 CAP PO ×3 (07:52→17:10)
[2017-11-05] MEDS: INSULIN ASPART [NOVOLOG] 3 ML PEN SC ×4 (07:53→21:00)
[2017-11-05] MEDS: BETHANECHOL 25 MG TAB PO ×3 (09:15→21:52)
[2017-11-05] MEDS: LACTOBACILLUS RHAMNOSUS CAP PO ×2 (09:16→21:52)
[2017-11-05] MEDS: ASPIRIN 81 MG TAB PO (09:16)
[2017-11-05] MEDS: VALSARTAN 160 MG TAB PO ×2 (09:16→21:52)
[2017-11-05] MEDS: TAMSULOSIN (SR) 0.4 MG CAP PO (21:53)
[2017-11-06 05:38] LABS: ADD MAN DIFF? NO
[2017-11-06] MEDS: PANTOPRAZOLE (EC) 40 MG TAB PO (05:44)
[2017-11-06] MEDS: FUROSEMIDE 20 MG TAB PO (05:45)
[2017-11-06 05:50] LABS: WHITE BLOOD COUNT 8.6 10^3/ul (4.8-10.8)
[2017-11-06 05:50] LABS: ABNORMAL IP MESSAGE 1; BASOPHILS % 0.5 % (0.0-2.0); EOSINOPHILS # 0.5 10^3/ul (0.0-0.5); EOSINOPHILS % 5.2 % (0.0-7.0); HEMATOCRIT 29.8 % (42.0-52.0); HEMOGLOBIN 9.2 g/dl (14.0-18.0); LYMPHOCYTES % 11.5 % (15.0-51.0); MEAN CORPUSCULAR HEMOGLOBIN 29.9 pg (29.0-33.0); MEAN CORPUSCULAR HGB CONC 30.9 g/dl (32.0-37.0); MEAN CORPUSCULAR VOLUME 96.8 fl (82.0-101.0); MEAN PLATELET VOLUME 13.4 fl (7.4-10.4); MONOCYTES % 11.7 % (0.0-11.0); NEUTROPHIL # 6.1 10^3/ul (1.6-7.5); NEUTROPHILS % 70.3 % (39.0-77.0); PLATELET COUNT 196 10^3/UL (140-415); POSITIVE DIFF @See below; RED BLOOD COUNT 3.08 10^6/ul (4.70-6.10); RED CELL DISTRIBUTION WIDTH 16.1 % (11.5-14.5)
[2017-11-06] MEDS: INSULIN ASPART [NOVOLOG] 3 ML PEN SC ×4 (07:55→21:00)
[2017-11-06] MEDS: CREON (24K-76K-120K) 1 CAP PO ×3 (07:55→17:12)
[2017-11-06] MEDS: BETHANECHOL 25 MG TAB PO ×3 (08:34→20:45)
[2017-11-06] MEDS: ASPIRIN 81 MG TAB PO (08:34)
[2017-11-06] MEDS: LACTOBACILLUS RHAMNOSUS CAP PO ×2 (08:34→20:45)
[2017-11-06] MEDS: VALSARTAN 160 MG TAB PO ×2 (08:34→20:45)
[2017-11-06] MEDS: TAMSULOSIN (SR) 0.4 MG CAP PO (20:46)
[2017-11-07] MEDS: PANTOPRAZOLE (EC) 40 MG TAB PO (05:29)
[2017-11-07] MEDS: FUROSEMIDE 20 MG TAB PO (05:30)
[2017-11-07 06:10] LABS: ADD MAN DIFF? NO
[2017-11-07 06:23] LABS: WHITE BLOOD COUNT 8.1 10^3/ul (4.8-10.8)
[2017-11-07 06:23] LABS: ABNORMAL IP MESSAGE 1; BASOPHILS % 0.2 % (0.0-2.0); EOSINOPHILS # 0.4 10^3/ul (0.0-0.5); EOSINOPHILS % 4.4 % (0.0-7.0); HEMATOCRIT 28.5 % (42.0-52.0); HEMOGLOBIN 8.8 g/dl (14.0-18.0); LYMPHOCYTES # 1.1 10^3/ul (0.8-2.9); MEAN CORPUSCULAR HEMOGLOBIN 30.1 pg (29.0-33.0); MEAN CORPUSCULAR HGB CONC 30.9 g/dl (32.0-37.0); MEAN CORPUSCULAR VOLUME 97.6 fl (82.0-101.0); MEAN PLATELET VOLUME 13.1 fl (7.4-10.4); MONOCYTE # 0.8 10^3/ul (0.3-0.9); MONOCYTES % 10.3 % (0.0-11.0); NEUTROPHIL # 5.8 10^3/ul (1.6-7.5); NEUTROPHILS % 71.4 % (39.0-77.0); PLATELET COUNT 193 10^3/UL (140-415); POSITIVE DIFF @See below; RED BLOOD COUNT 2.92 10^6/ul (4.70-6.10); RED CELL DISTRIBUTION WIDTH 15.9 % (11.5-14.5)
[2017-11-07] MEDS: INSULIN ASPART [NOVOLOG] 3 ML PEN SC ×3 (08:00→17:34)
[2017-11-07] MEDS: CREON (24K-76K-120K) 1 CAP PO ×3 (08:14→17:33)
[2017-11-07] MEDS: VALSARTAN 160 MG TAB PO (08:15)
[2017-11-07] MEDS: ASPIRIN 81 MG TAB PO (08:15)
[2017-11-07] MEDS: BETHANECHOL 25 MG TAB PO ×2 (08:15→12:07)
[2017-11-07] MEDS: LACTOBACILLUS RHAMNOSUS CAP PO (08:15)
== END 2017-11-07 20:15 | disposition home or self-care (01) | DRG 438 ==
LOC: E/R 12:40 → PP2 17:35
PROC: 0DJ08ZZ Inspection of Upper Intestinal Tract, Via Natural or Artificial Opening Endoscopic (ICD-10-PCS; principal; 2017-10-27 16:30)
PROC: 0F798DZ Dilation of Common Bile Duct with Intraluminal Device, Via Natural or Artificial Opening Endoscopic (ICD-10-PCS; 2017-10-27 16:30)
PROC: 0F7D8DZ Dilation of Pancreatic Duct with Intraluminal Device, Via Natural or Artificial Opening Endoscopic (ICD-10-PCS; 2017-10-27 16:30)
PROC: 0FC98ZZ Extirpation of Matter from Common Bile Duct, Via Natural or Artificial Opening Endoscopic (ICD-10-PCS; 2017-10-27 16:30)
PROC: 30233N1 Transfusion of Nonautologous Red Blood Cells into Peripheral Vein, Percutaneous Approach (ICD-10-PCS; 2017-10-27 17:19)
PROC: 02HV33Z Insertion of Infusion Device into Superior Vena Cava, Percutaneous Approach (ICD-10-PCS; 2017-10-27 17:19)
DX: K85.10 Biliary acute pancreatitis without necrosis or infection (principal); I50.33 Acute on chronic diastolic (congestive) heart failure; K56.7 Ileus, unspecified; R18.8 Other ascites; N17.9 Acute kidney failure, unspecified; E87.0 Hyperosmolality and hypernatremia; E46 Unspecified protein-calorie malnutrition; A04.72 Enterocolitis due to Clostridium difficile, not specified as recurrent; D62 Acute posthemorrhagic anemia; N39.0 Urinary tract infection, site not specified; N13.8 Other obstructive and reflux uropathy; B37.89 Other sites of candidiasis; Z68.27 Body mass index [BMI] 27.0-27.9, adult; Z95.1 Presence of aortocoronary bypass graft; E79.0 Hyperuricemia without signs of inflammatory arthritis and tophaceous disease; E11.9 Type 2 diabetes mellitus without complications; Z87.891 Personal history of nicotine dependence; D50.9 Iron deficiency anemia, unspecified; I45.10 Unspecified right bundle-branch block; I44.0 Atrioventricular block, first degree; Z91.041 Radiographic dye allergy status; R73.9 Hyperglycemia, unspecified; N40.1 Benign prostatic hyperplasia with lower urinary tract symptoms; Z53.09 Procedure and treatment not carried out because of other contraindication; I12.9 Hypertensive chronic kidney disease with stage 1 through stage 4 chronic kidney disease, or unspecified chronic kidney disease; N18.2 Chronic kidney disease, stage 2 (mild); K29.70 Gastritis, unspecified, without bleeding
CPT/HCPCS: 36415; 36430; 36569; 71045; 71046; 71250; 74018; 74176; 74181; 74330; 76705; 76937; 78226; 80048; 80053; 80061; 80069; 80076; 81001; 82150; 82270; 82962; 83036; 83605; 83615; 83690; 83735; 84100; 84134; 84443; 84478; 84484; 85025; 85610; 85651; 85730; 86850; 86900; 86901; 86920; 87040; 87045; 87075; 87086; 93005; 93971; 96374; 96375; 96376; 99291-25

== ENCOUNTER 2017-11-14 12:55 | Inpatient (IN) | payer MEDICARE, BC ==
[2017-11-14 14:43] LABS: ADD MAN DIFF? NO
[2017-11-14 14:46] LABS: BASOPHILS % 0.3 % (0.0-2.0); EOSINOPHILS # 0.4 10^3/ul (0.0-0.5); HEMATOCRIT 38.1 % (42.0-52.0); HEMOGLOBIN 11.7 g/dl (14.0-18.0); LYMPHOCYTES # 0.9 10^3/ul (0.8-2.9); LYMPHOCYTES % 9.3 % (15.0-51.0); MEAN CORPUSCULAR HEMOGLOBIN 29.7 pg (29.0-33.0); MEAN CORPUSCULAR HGB CONC 30.7 g/dl (32.0-37.0); MEAN CORPUSCULAR VOLUME 96.7 fl (82.0-101.0); MONOCYTE # 0.9 10^3/ul (0.3-0.9); MONOCYTES % 9.5 % (0.0-11.0); NEUTROPHIL # 7.3 10^3/ul (1.6-7.5); NEUTROPHILS % 76.5 % (39.0-77.0); PLATELET COUNT 327 10^3/UL (140-415); RED BLOOD COUNT 3.94 10^6/ul (4.70-6.10); RED CELL DISTRIBUTION WIDTH 15.1 % (11.5-14.5)
[2017-11-14 14:46] LABS: WHITE BLOOD COUNT 9.6 10^3/ul (4.8-10.8)
[2017-11-14] MEDS: SOD CHLORIDE 0.9% 1,000 ML IV (15:05)
[2017-11-14 15:07] LABS: ALANINE AMINOTRANSFERASE 42 IU/L (13-69); ALBUMIN 3.6 g/dl (3.3-4.9); ALBUMIN/GLOBULIN RATIO 0.97; ALKALINE PHOSPHATASE 138 IU/L (42-121); ANION GAP 13 (8-16); ASPARTATE AMINO TRANSFERASE 27 IU/L (15-46); BILIRUBIN,INDIRECT 0.7 mg/dl (0-1.1); BILIRUBIN,TOTAL 0.7 mg/dl (0.2-1.3); BLOOD UREA NITROGEN 17 mg/dl (7-20); CALCIUM 9.3 mg/dl (8.4-10.2); CARBON DIOXIDE 28 mmol/L (21-31); CHLORIDE 107 mmol/L (97-110); CREATININE 1.25 mg/dl (0.61-1.24); GLUCOSE 114 mg/dl (70-220); LIPASE 247 U/L (23-300); POTASSIUM 3.8 mmol/L (3.5-5.1); SODIUM 144 mmol/L (135-144); TOTAL PROTEIN 7.3 g/dl (6.1-8.1)
[2017-11-14] MEDS: ONDANSETRON 4 MG INJ IV (17:26)
[2017-11-14] MEDS: morphine 2 MG INJ IV (17:26)
[2017-11-14] MEDS ORDERED: morphine 2 MG INJ IV (19:30)
[2017-11-14] MEDS ORDERED: ONDANSETRON 4 MG INJ IV (19:30)
[2017-11-14] MEDS ORDERED: NACL 0.9% 3 ML SYG IV (19:30)
[2017-11-14] MEDS: D5W-0.45 NACL + KCL 20 MEQ 1,000 ML IV (20:22)
[2017-11-15] MEDS: D5W-0.45 NACL + KCL 20 MEQ 1,000 ML IV ×4 (05:11→19:19)
[2017-11-15 05:55] LABS: ADD MAN DIFF? NO
[2017-11-15 06:04] LABS: ABNORMAL IP MESSAGE 1; BASOPHILS % 0.2 % (0.0-2.0); EOSINOPHILS # 0.4 10^3/ul (0.0-0.5); EOSINOPHILS % 5.5 % (0.0-7.0); HEMATOCRIT 30.1 % (42.0-52.0); HEMOGLOBIN 9.4 g/dl (14.0-18.0); LYMPHOCYTES # 0.6 10^3/ul (0.8-2.9); LYMPHOCYTES % 8.8 % (15.0-51.0); MEAN CORPUSCULAR HEMOGLOBIN 29.7 pg (29.0-33.0); MEAN CORPUSCULAR HGB CONC 31.2 g/dl (32.0-37.0); MEAN CORPUSCULAR VOLUME 95.3 fl (82.0-101.0); MEAN PLATELET VOLUME 11.8 fl (7.4-10.4); MONOCYTE # 0.8 10^3/ul (0.3-0.9); MONOCYTES % 11.9 % (0.0-11.0); NEUTROPHIL # 4.8 10^3/ul (1.6-7.5); NEUTROPHILS % 73.1 % (39.0-77.0); PLATELET COUNT 253 10^3/UL (140-415); POSITIVE DIFF @See below; RED BLOOD COUNT 3.16 10^6/ul (4.70-6.10); RED CELL DISTRIBUTION WIDTH 14.9 % (11.5-14.5)
[2017-11-15 06:04] LABS: WHITE BLOOD COUNT 6.5 10^3/ul (4.8-10.8)
[2017-11-15 06:36] LABS: ALANINE AMINOTRANSFERASE 44 IU/L (13-69); ALBUMIN 2.6 g/dl (3.3-4.9); ALKALINE PHOSPHATASE 129 IU/L (42-121); ANION GAP 11 (8-16); ASPARTATE AMINO TRANSFERASE 34 IU/L (15-46); BILIRUBIN,INDIRECT 0.4 mg/dl (0-1.1); BILIRUBIN,TOTAL 0.4 mg/dl (0.2-1.3); BLOOD UREA NITROGEN 13 mg/dl (7-20); CALCIUM 8.4 mg/dl (8.4-10.2); CARBON DIOXIDE 29 mmol/L (21-31); CHLORIDE 107 mmol/L (97-110); CREATININE 0.96 mg/dl (0.61-1.24); GLUCOSE 111 mg/dl (70-220); MAGNESIUM 1.7 mg/dl (1.7-2.5); PHOSPHORUS 3.2 mg/dl (2.5-4.9); POTASSIUM 3.7 mmol/L (3.5-5.1); SODIUM 143 mmol/L (135-144); TOTAL PROTEIN 5.2 g/dl (6.1-8.1)
[2017-11-15] MEDS: PANTOPRAZOLE 40 MG INJ IV (06:40)
[2017-11-15 07:33] LABS: HEMOGLOBIN A1C 6.2 % (0-5.9)
[2017-11-15] MEDS: CLOPIDOGREL 75 MG TAB PO (08:49)
[2017-11-15] MEDS: ENOXAPARIN 40 MG/0.4 ML SYG SC (08:52)
[2017-11-15] MEDS ORDERED: morphine LIQ (10 MG/5 ML) CUP PO (15:00)
[2017-11-15 15:58] LABS: AMYLASE 44 U/L (11-123)
[2017-11-15 19:57] LABS: OCCULT BLOOD STOOL POSITIVE (NEGATIVE)
[2017-11-16] MEDS: D5W-0.45 NACL + KCL 20 MEQ 1,000 ML IV ×5 (01:42→23:29)
[2017-11-16 05:25] LABS: ADD MAN DIFF? NO
[2017-11-16 05:40] LABS: WHITE BLOOD COUNT 8.2 10^3/ul (4.8-10.8)
[2017-11-16 05:40] LABS: BASOPHILS % 0.1 % (0.0-2.0); EOSINOPHILS # 0.5 10^3/ul (0.0-0.5); EOSINOPHILS % 5.9 % (0.0-7.0); HEMATOCRIT 33.4 % (42.0-52.0); HEMOGLOBIN 10.3 g/dl (14.0-18.0); LYMPHOCYTES # 0.8 10^3/ul (0.8-2.9); LYMPHOCYTES % 9.4 % (15.0-51.0); MEAN CORPUSCULAR HEMOGLOBIN 29.9 pg (29.0-33.0); MEAN CORPUSCULAR HGB CONC 30.8 g/dl (32.0-37.0); MEAN CORPUSCULAR VOLUME 96.8 fl (82.0-101.0); MEAN PLATELET VOLUME 11.7 fl (7.4-10.4); MONOCYTE # 1.1 10^3/ul (0.3-0.9); NEUTROPHIL # 5.8 10^3/ul (1.6-7.5); NEUTROPHILS % 71.2 % (39.0-77.0); PLATELET COUNT 271 10^3/UL (140-415); RED BLOOD COUNT 3.45 10^6/ul (4.70-6.10); RED CELL DISTRIBUTION WIDTH 14.7 % (11.5-14.5)
[2017-11-16] MEDS: PANTOPRAZOLE 40 MG INJ IV (06:16)
[2017-11-16 06:58] LABS: ALANINE AMINOTRANSFERASE 46 IU/L (13-69); ALBUMIN 2.7 g/dl (3.3-4.9); ALBUMIN/GLOBULIN RATIO 0.87; ALKALINE PHOSPHATASE 126 IU/L (42-121); ANION GAP 12 (8-16); ASPARTATE AMINO TRANSFERASE 23 IU/L (15-46); BILIRUBIN,INDIRECT 0.5 mg/dl (0-1.1); BILIRUBIN,TOTAL 0.5 mg/dl (0.2-1.3); BLOOD UREA NITROGEN 9 mg/dl (7-20); CALCIUM 8.4 mg/dl (8.4-10.2); CARBON DIOXIDE 26 mmol/L (21-31); CHLORIDE 109 mmol/L (97-110); CREATININE 0.93 mg/dl (0.61-1.24); GLUCOSE 103 mg/dl (70-220); POTASSIUM 3.9 mmol/L (3.5-5.1); SODIUM 143 mmol/L (135-144); TOTAL PROTEIN 5.8 g/dl (6.1-8.1)
[2017-11-16] MEDS: CLOPIDOGREL 75 MG TAB PO (08:03)
[2017-11-16] MEDS: ENOXAPARIN 40 MG/0.4 ML SYG SC (08:05)
[2017-11-16 15:35] LABS: ADD UMIC YES; UR ASCORBIC ACID NEGATIVE (NEGATIVE); UR BILIRUBIN (Dip) NEGATIVE (NEGATIVE); UR BLOOD (Dip) 1+ mg/dL (NEGATIVE); UR CLARITY CLEAR (CLEAR); UR COLOR YELLOW (YELLOW); UR GLUCOSE (Dip) NEGATIVE (NEGATIVE); UR KETONES (Dip) NEGATIVE (NEGATIVE); UR LEUKOCYTE ESTERASE (Dip) NEGATIVE Leu/ul (NEGATIVE); UR MUCUS FEW /HPF (NONE SEEN); UR NITRITE (Dip) NEGATIVE (NEGATIVE); UR RBC 1 /HPF (0-5); UR SPECIFIC GRAVITY (Dip) 1.011 (1.003-1.030); UR TOTAL PROTEIN (Dip) 1+ mg/dl (NEGATIVE); UR UROBILINOGEN (Dip) NEGATIVE (NEGATIVE); UR WBC 1 /HPF (0-5)
[2017-11-16] MEDS: DIPHENOXYLATE/ATROPINE TAB PO (18:53)
[2017-11-17] MEDS: D5W-0.45 NACL + KCL 20 MEQ 1,000 ML IV ×4 (03:19→19:19)
[2017-11-17 05:52] LABS: ADD MAN DIFF? NO
[2017-11-17 05:58] LABS: WHITE BLOOD COUNT 8.3 10^3/ul (4.8-10.8)
[2017-11-17 05:58] LABS: BASOPHILS % 0.2 % (0.0-2.0); EOSINOPHILS # 0.4 10^3/ul (0.0-0.5); EOSINOPHILS % 5.2 % (0.0-7.0); HEMOGLOBIN 9.4 g/dl (14.0-18.0); LYMPHOCYTES # 0.9 10^3/ul (0.8-2.9); LYMPHOCYTES % 11.1 % (15.0-51.0); MEAN CORPUSCULAR HEMOGLOBIN 29.6 pg (29.0-33.0); MEAN CORPUSCULAR HGB CONC 31.3 g/dl (32.0-37.0); MEAN CORPUSCULAR VOLUME 94.3 fl (82.0-101.0); MEAN PLATELET VOLUME 11.5 fl (7.4-10.4); MONOCYTE # 0.9 10^3/ul (0.3-0.9); MONOCYTES % 10.4 % (0.0-11.0); NEUTROPHILS % 72.7 % (39.0-77.0); PLATELET COUNT 305 10^3/UL (140-415); RED BLOOD COUNT 3.18 10^6/ul (4.70-6.10); RED CELL DISTRIBUTION WIDTH 14.6 % (11.5-14.5)
[2017-11-17] MEDS: PANTOPRAZOLE 40 MG INJ IV (06:09)
[2017-11-17 06:16] LABS: PHOSPHORUS 2.9 mg/dl (2.5-4.9)
[2017-11-17 06:16] LABS: MAGNESIUM 1.4 mg/dl (1.7-2.5)
[2017-11-17 06:33] LABS: ALANINE AMINOTRANSFERASE 35 IU/L (13-69); ALBUMIN 2.4 g/dl (3.3-4.9); ALBUMIN/GLOBULIN RATIO 0.82; ALKALINE PHOSPHATASE 104 IU/L (42-121); ANION GAP 11 (8-16); ASPARTATE AMINO TRANSFERASE 12 IU/L (15-46); BILIRUBIN,INDIRECT 0.5 mg/dl (0-1.1); BILIRUBIN,TOTAL 0.5 mg/dl (0.2-1.3); BLOOD UREA NITROGEN 6 mg/dl (7-20); CALCIUM 8.2 mg/dl (8.4-10.2); CARBON DIOXIDE 27 mmol/L (21-31); CHLORIDE 109 mmol/L (97-110); GLUCOSE 103 mg/dl (70-220); POTASSIUM 4.1 mmol/L (3.5-5.1); SODIUM 143 mmol/L (135-144); TOTAL PROTEIN 5.3 g/dl (6.1-8.1)
[2017-11-17] MEDS: CLOPIDOGREL 75 MG TAB PO (08:03)
[2017-11-17] MEDS: ENOXAPARIN 40 MG/0.4 ML SYG SC (08:04)
[2017-11-17] MEDS ORDERED: MAGNESIUM SULFATE 4 GM in DEXTROSE 5% 100 ML IV (18:00)
[2017-11-17] MEDS: metroNIDAZOLE 500 MG TAB PO (18:03)
[2017-11-17] MEDS: DIPHENOXYLATE/ATROPINE TAB PO (18:03)
[2017-11-17] MEDS: MAG SULFATE 2GM IN 50 ML IVPB ×2 (18:42→20:32)
[2017-11-18] MEDS: metroNIDAZOLE 500 MG TAB PO ×3 (00:58→12:39)
[2017-11-18] MEDS: D5W-0.45 NACL + KCL 20 MEQ 1,000 ML IV ×5 (02:53→20:33)
[2017-11-18 05:51] LABS: ADD MAN DIFF? NO
[2017-11-18 05:55] LABS: WHITE BLOOD COUNT 9.5 10^3/ul (4.8-10.8)
[2017-11-18 05:55] LABS: BASOPHILS % 0.4 % (0.0-2.0); EOSINOPHILS # 0.4 10^3/ul (0.0-0.5); EOSINOPHILS % 4.3 % (0.0-7.0); HEMATOCRIT 30.2 % (42.0-52.0); HEMOGLOBIN 9.6 g/dl (14.0-18.0); LYMPHOCYTES % 10.5 % (15.0-51.0); MEAN CORPUSCULAR HEMOGLOBIN 29.7 pg (29.0-33.0); MEAN CORPUSCULAR HGB CONC 31.8 g/dl (32.0-37.0); MEAN CORPUSCULAR VOLUME 93.5 fl (82.0-101.0); MEAN PLATELET VOLUME 11.2 fl (7.4-10.4); MONOCYTES % 10.4 % (0.0-11.0); NEUTROPHILS % 74.1 % (39.0-77.0); PLATELET COUNT 344 10^3/UL (140-415); RED BLOOD COUNT 3.23 10^6/ul (4.70-6.10); RED CELL DISTRIBUTION WIDTH 14.5 % (11.5-14.5)
[2017-11-18] MEDS: PANTOPRAZOLE 40 MG INJ IV (05:57)
[2017-11-18 06:13] LABS: MAGNESIUM 2.1 mg/dl (1.7-2.5)
[2017-11-18 06:15] LABS: ANION GAP 10 (8-16); BLOOD UREA NITROGEN 5 mg/dl (7-20); CALCIUM 8.2 mg/dl (8.4-10.2); CARBON DIOXIDE 26 mmol/L (21-31); CHLORIDE 109 mmol/L (97-110); CREATININE 0.89 mg/dl (0.61-1.24); GLUCOSE 106 mg/dl (70-220); POTASSIUM 3.7 mmol/L (3.5-5.1); SODIUM 141 mmol/L (135-144)
[2017-11-18] MEDS: CLOPIDOGREL 75 MG TAB PO (08:37)
[2017-11-18] MEDS: ENOXAPARIN 40 MG/0.4 ML SYG SC (08:44)
[2017-11-18] MEDS: DIPHENOXYLATE/ATROPINE TAB PO (10:11)
[2017-11-18] MEDS: VANCOMYCIN HCL 250 MG/5ML POSYG PO ×2 (12:39→19:23)
[2017-11-18] MEDS: VALSARTAN 160 MG TAB PO (15:56)
[2017-11-18] MEDS: HYDROCHLOROTHIAZIDE 25 MG TAB PO (15:56)
[2017-11-18] MEDS: metroNIDAZOLE 250 MG TAB PO (18:00)
[2017-11-18] MEDS: ATORVASTATIN 10 MG TAB PO (20:33)
[2017-11-19] MEDS: VANCOMYCIN HCL 250 MG/5ML POSYG PO ×5 (00:06→23:32)
[2017-11-19] MEDS: metroNIDAZOLE 250 MG TAB PO ×5 (00:07→23:33)
[2017-11-19] MEDS: D5W-0.45 NACL + KCL 20 MEQ 1,000 ML IV ×4 (03:19→17:48)
[2017-11-19 05:38] LABS: ADD MAN DIFF? NO
[2017-11-19 05:48] LABS: WHITE BLOOD COUNT 6.2 10^3/ul (4.8-10.8)
[2017-11-19 05:48] LABS: BASOPHIL # 0.1 10^3/ul (0.0-0.1); EOSINOPHILS # 0.5 10^3/ul (0.0-0.5); EOSINOPHILS % 7.9 % (0.0-7.0); HEMATOCRIT 32.5 % (42.0-52.0); HEMOGLOBIN 10.1 g/dl (14.0-18.0); LYMPHOCYTES # 0.8 10^3/ul (0.8-2.9); LYMPHOCYTES % 12.1 % (15.0-51.0); MEAN CORPUSCULAR HEMOGLOBIN 29.4 pg (29.0-33.0); MEAN CORPUSCULAR HGB CONC 31.1 g/dl (32.0-37.0); MEAN CORPUSCULAR VOLUME 94.5 fl (82.0-101.0); MONOCYTE # 0.8 10^3/ul (0.3-0.9); MONOCYTES % 12.4 % (0.0-11.0); NEUTROPHIL # 4.1 10^3/ul (1.6-7.5); NEUTROPHILS % 66.3 % (39.0-77.0); PLATELET COUNT 376 10^3/UL (140-415); RED BLOOD COUNT 3.44 10^6/ul (4.70-6.10); RED CELL DISTRIBUTION WIDTH 14.4 % (11.5-14.5)
[2017-11-19 06:08] LABS: ANION GAP 11 (8-16); BLOOD UREA NITROGEN 3 mg/dl (7-20); CALCIUM 8.4 mg/dl (8.4-10.2); CARBON DIOXIDE 27 mmol/L (21-31); CHLORIDE 108 mmol/L (97-110); CREATININE 0.85 mg/dl (0.61-1.24); GLUCOSE 121 mg/dl (70-220); SODIUM 142 mmol/L (135-144)
[2017-11-19 06:13] LABS: MAGNESIUM 1.7 mg/dl (1.7-2.5)
[2017-11-19] MEDS: PANTOPRAZOLE 40 MG INJ IV (06:17)
[2017-11-19] MEDS: HYDROCHLOROTHIAZIDE 25 MG TAB PO (09:24)
[2017-11-19] MEDS: VALSARTAN 160 MG TAB PO (09:24)
[2017-11-19] MEDS: CLOPIDOGREL 75 MG TAB PO (09:25)
[2017-11-19] MEDS: ENOXAPARIN 40 MG/0.4 ML SYG SC (09:58)
[2017-11-19] MEDS: LACTOBACILLUS RHAMNOSUS CAP PO ×2 (12:19→20:38)
[2017-11-19] MEDS: DIPHENOXYLATE/ATROPINE TAB PO (14:31)
[2017-11-19] MEDS: ATORVASTATIN 10 MG TAB PO (20:38)
[2017-11-20] MEDS: D5W-0.45 NACL + KCL 20 MEQ 1,000 ML IV ×4 (03:25→23:21)
[2017-11-20] MEDS: VANCOMYCIN HCL 250 MG/5ML POSYG PO ×3 (05:42→17:48)
[2017-11-20] MEDS: PANTOPRAZOLE 40 MG INJ IV (05:43)
[2017-11-20] MEDS: metroNIDAZOLE 250 MG TAB PO ×3 (05:43→17:48)
[2017-11-20] MEDS: VALSARTAN 160 MG TAB PO (09:19)
[2017-11-20] MEDS: LACTOBACILLUS RHAMNOSUS CAP PO ×2 (09:19→20:05)
[2017-11-20] MEDS: CLOPIDOGREL 75 MG TAB PO (09:19)
[2017-11-20] MEDS: HYDROCHLOROTHIAZIDE 25 MG TAB PO (09:19)
[2017-11-20] MEDS: ENOXAPARIN 40 MG/0.4 ML SYG SC (09:24)
[2017-11-20] MEDS: ATORVASTATIN 10 MG TAB PO (20:05)
[2017-11-21] MEDS: metroNIDAZOLE 250 MG TAB PO ×5 (00:48→23:50)
[2017-11-21] MEDS: VANCOMYCIN HCL 250 MG/5ML POSYG PO ×5 (00:48→23:50)
[2017-11-21] MEDS: PANTOPRAZOLE 40 MG INJ IV (05:29)
[2017-11-21 06:44] LABS: ADD MAN DIFF? NO
[2017-11-21 06:48] LABS: BASOPHILS % 0.6 % (0.0-2.0); EOSINOPHILS # 0.5 10^3/ul (0.0-0.5); EOSINOPHILS % 6.8 % (0.0-7.0); HEMATOCRIT 31.6 % (42.0-52.0); HEMOGLOBIN 10.1 g/dl (14.0-18.0); LYMPHOCYTES % 15.1 % (15.0-51.0); MEAN CORPUSCULAR HEMOGLOBIN 29.5 pg (29.0-33.0); MEAN CORPUSCULAR VOLUME 92.4 fl (82.0-101.0); MEAN PLATELET VOLUME 10.7 fl (7.4-10.4); MONOCYTE # 0.9 10^3/ul (0.3-0.9); MONOCYTES % 14.1 % (0.0-11.0); NEUTROPHIL # 4.1 10^3/ul (1.6-7.5); NEUTROPHILS % 62.5 % (39.0-77.0); PLATELET COUNT 398 10^3/UL (140-415); RED BLOOD COUNT 3.42 10^6/ul (4.70-6.10); RED CELL DISTRIBUTION WIDTH 14.6 % (11.5-14.5)
[2017-11-21 06:48] LABS: WHITE BLOOD COUNT 6.6 10^3/ul (4.8-10.8)
[2017-11-21] MEDS ORDERED: POLYETHYLENE GLYCOL 17 GM PACKET PO (07:00)
[2017-11-21] MEDS ORDERED: BISACODYL 10 MG SUPP PR (07:00)
[2017-11-21 07:10] LABS: MAGNESIUM 1.5 mg/dl (1.7-2.5)
[2017-11-21 07:12] LABS: ANION GAP 10 (8-16); BLOOD UREA NITROGEN 7 mg/dl (7-20); CALCIUM 8.3 mg/dl (8.4-10.2); CARBON DIOXIDE 27 mmol/L (21-31); CHLORIDE 108 mmol/L (97-110); GLUCOSE 107 mg/dl (70-220); POTASSIUM 4.1 mmol/L (3.5-5.1); SODIUM 141 mmol/L (135-144)
[2017-11-21] MEDS: CLOPIDOGREL 75 MG TAB PO (08:27)
[2017-11-21] MEDS: LACTOBACILLUS RHAMNOSUS CAP PO ×2 (08:27→20:09)
[2017-11-21] MEDS: VALSARTAN 160 MG TAB PO (08:28)
[2017-11-21] MEDS: HYDROCHLOROTHIAZIDE 25 MG TAB PO (08:28)
[2017-11-21] MEDS: ENOXAPARIN 40 MG/0.4 ML SYG SC (08:31)
[2017-11-21] MEDS ORDERED: DOCUSATE SODIUM 100 MG CAP PO (09:00)
[2017-11-21] MEDS ORDERED: MAGNESIUM SULFATE 4 GM/100 ML 100 ML IVPB (10:30)
[2017-11-21] MEDS: MAG SULFATE 2GM IN 50 ML IVPB ×2 (10:53→13:36)
[2017-11-21] MEDS: D5W-0.45 NACL + KCL 20 MEQ 1,000 ML IV ×3 (11:19→18:03)
[2017-11-21] MEDS: ATORVASTATIN 10 MG TAB PO (20:08)
[2017-11-21] MEDS ORDERED: IOHEXOL 14.3 MG(I)/ML (ADULT) BTL PO (21:30)
[2017-11-21] MEDS ORDERED: DIPHENHYDRAMINE 50 MG INJ IV (22:00)
[2017-11-21] MEDS: METHYLPREDNISOLONE 125 MG INJ IV (22:04)
[2017-11-22] MEDS: D5W-0.45 NACL + KCL 20 MEQ 1,000 ML IV ×4 (01:04→20:05)
[2017-11-22] MEDS: PANTOPRAZOLE 40 MG INJ IV (05:33)
[2017-11-22] MEDS: VANCOMYCIN HCL 250 MG/5ML POSYG PO ×4 (05:33→23:52)
[2017-11-22] MEDS: METHYLPREDNISOLONE 125 MG INJ IV ×3 (05:33→21:49)
[2017-11-22] MEDS: metroNIDAZOLE 250 MG TAB PO ×4 (05:33→23:52)
[2017-11-22 06:02] LABS: ADD MAN DIFF? NO
[2017-11-22 06:04] LABS: ABNORMAL IP MESSAGE 1; BASOPHILS % 0.4 % (0.0-2.0); EOSINOPHILS % 0.3 % (0.0-7.0); HEMATOCRIT 37.4 % (42.0-52.0); HEMOGLOBIN 11.4 g/dl (14.0-18.0); LYMPHOCYTES # 0.6 10^3/ul (0.8-2.9); LYMPHOCYTES % 7.7 % (15.0-51.0); MEAN CORPUSCULAR HEMOGLOBIN 29.5 pg (29.0-33.0); MEAN CORPUSCULAR HGB CONC 30.5 g/dl (32.0-37.0); MEAN CORPUSCULAR VOLUME 96.9 fl (82.0-101.0); MEAN PLATELET VOLUME 10.5 fl (7.4-10.4); MONOCYTE # 0.1 10^3/ul (0.3-0.9); MONOCYTES % 1.6 % (0.0-11.0); NEUTROPHIL # 6.7 10^3/ul (1.6-7.5); NEUTROPHILS % 88.1 % (39.0-77.0); PLATELET COUNT 395 10^3/UL (140-415); POSITIVE DIFF @See below; RED BLOOD COUNT 3.86 10^6/ul (4.70-6.10); RED CELL DISTRIBUTION WIDTH 14.7 % (11.5-14.5)
[2017-11-22 06:04] LABS: WHITE BLOOD COUNT 7.5 10^3/ul (4.8-10.8)
[2017-11-22 06:49] LABS: ANION GAP 12 (8-16); BLOOD UREA NITROGEN 11 mg/dl (7-20); CALCIUM 8.5 mg/dl (8.4-10.2); CARBON DIOXIDE 25 mmol/L (21-31); CHLORIDE 108 mmol/L (97-110); CREATININE 0.79 mg/dl (0.61-1.24); GLUCOSE 191 mg/dl (70-220); POTASSIUM 4.4 mmol/L (3.5-5.1); SODIUM 141 mmol/L (135-144)
[2017-11-22] MEDS: LACTOBACILLUS RHAMNOSUS CAP PO ×2 (09:17→21:46)
[2017-11-22] MEDS: VALSARTAN 160 MG TAB PO (09:18)
[2017-11-22] MEDS: HYDROCHLOROTHIAZIDE 25 MG TAB PO (09:18)
[2017-11-22] MEDS: CLOPIDOGREL 75 MG TAB PO (09:18)
[2017-11-22] MEDS: ENOXAPARIN 40 MG/0.4 ML SYG SC (09:21)
[2017-11-22] MEDS: ATORVASTATIN 10 MG TAB PO (21:46)
[2017-11-23] MEDS: D5W-0.45 NACL + KCL 20 MEQ 1,000 ML IV ×3 (03:19→20:47)
[2017-11-23] MEDS: VANCOMYCIN HCL 250 MG/5ML POSYG PO ×4 (05:59→23:48)
[2017-11-23] MEDS: PANTOPRAZOLE 40 MG INJ IV (06:00)
[2017-11-23] MEDS: METHYLPREDNISOLONE 125 MG INJ IV ×2 (06:00→13:55)
[2017-11-23] MEDS: metroNIDAZOLE 250 MG TAB PO ×4 (06:00→23:48)
[2017-11-23] MEDS: VALSARTAN 160 MG TAB PO (08:51)
[2017-11-23] MEDS: LACTOBACILLUS RHAMNOSUS CAP PO ×2 (08:52→20:47)
[2017-11-23] MEDS: HYDROCHLOROTHIAZIDE 25 MG TAB PO (08:52)
[2017-11-23] MEDS: CLOPIDOGREL 75 MG TAB PO (08:52)
[2017-11-23] MEDS: ENOXAPARIN 40 MG/0.4 ML SYG SC (08:53)
[2017-11-23] MEDS: AMLODIPINE 5 MG TAB PO (10:12)
[2017-11-23] MEDS: DIPHENHYDRAMINE 50 MG INJ IV (14:00)
[2017-11-23] MEDS: SOD CHLORIDE 0.9% 100 ML (15:31)
[2017-11-23] MEDS: IODIXANOL LOCM 100 ML BTL (15:32)
[2017-11-23] MEDS: ATORVASTATIN 10 MG TAB PO (20:47)
[2017-11-24] MEDS: D5W-0.45 NACL + KCL 20 MEQ 1,000 ML IV ×3 (03:58→19:31)
[2017-11-24] MEDS: VANCOMYCIN HCL 250 MG/5ML POSYG PO (05:23)
[2017-11-24] MEDS: metroNIDAZOLE 250 MG TAB PO (05:23)
[2017-11-24] MEDS: PANTOPRAZOLE 40 MG INJ IV (05:24)
[2017-11-24] MEDS: AMLODIPINE 5 MG TAB PO (09:02)
[2017-11-24] MEDS: CLOPIDOGREL 75 MG TAB PO (09:02)
[2017-11-24] MEDS: VALSARTAN 160 MG TAB PO (09:02)
[2017-11-24] MEDS: LACTOBACILLUS RHAMNOSUS CAP PO ×2 (09:03→20:08)
[2017-11-24] MEDS: HYDROCHLOROTHIAZIDE 25 MG TAB PO (09:03)
[2017-11-24] MEDS: ENOXAPARIN 40 MG/0.4 ML SYG SC (09:05)
[2017-11-24] MEDS: FIDAXOMICIN 200 MG TABLET PO ×2 (13:23→20:09)
[2017-11-24 19:34] LABS: CANCER ANTIGEN 19-9 2.3 U/ml (0.0-37.0)
[2017-11-24] MEDS: ATORVASTATIN 10 MG TAB PO (20:08)
[2017-11-24] MEDS: DOXAZOSIN 2 MG TAB PO (20:09)
[2017-11-25] MEDS: D5W-0.45 NACL + KCL 20 MEQ 1,000 ML IV ×3 (03:35→23:50)
[2017-11-25] MEDS: PANTOPRAZOLE 40 MG INJ IV (05:03)
[2017-11-25] MEDS: HYDROCHLOROTHIAZIDE 25 MG TAB PO (09:27)
[2017-11-25] MEDS: CLOPIDOGREL 75 MG TAB PO (09:27)
[2017-11-25] MEDS: VALSARTAN 160 MG TAB PO (09:28)
[2017-11-25] MEDS: AMLODIPINE 5 MG TAB PO (09:28)
[2017-11-25] MEDS: LACTOBACILLUS RHAMNOSUS CAP PO ×2 (09:28→20:22)
[2017-11-25] MEDS: FIDAXOMICIN 200 MG TABLET PO ×2 (09:28→20:22)
[2017-11-25] MEDS: ENOXAPARIN 40 MG/0.4 ML SYG SC (09:31)
[2017-11-25 11:43] LABS: ADD MAN DIFF? NO
[2017-11-25 11:48] LABS: WHITE BLOOD COUNT 10.6 10^3/ul (4.8-10.8)
[2017-11-25 11:48] LABS: BASOPHIL # 0.1 10^3/ul (0.0-0.1); BASOPHILS % 0.5 % (0.0-2.0); EOSINOPHILS # 0.2 10^3/ul (0.0-0.5); EOSINOPHILS % 2.2 % (0.0-7.0); HEMATOCRIT 38.6 % (42.0-52.0); HEMOGLOBIN 11.9 g/dl (14.0-18.0); LYMPHOCYTES # 1.1 10^3/ul (0.8-2.9); LYMPHOCYTES % 9.9 % (15.0-51.0); MEAN CORPUSCULAR HEMOGLOBIN 29.2 pg (29.0-33.0); MEAN CORPUSCULAR HGB CONC 30.8 g/dl (32.0-37.0); MEAN CORPUSCULAR VOLUME 94.8 fl (82.0-101.0); MEAN PLATELET VOLUME 10.6 fl (7.4-10.4); MONOCYTES % 9.2 % (0.0-11.0); NEUTROPHIL # 8.1 10^3/ul (1.6-7.5); NEUTROPHILS % 75.8 % (39.0-77.0); PLATELET COUNT 494 10^3/UL (140-415); RED BLOOD COUNT 4.07 10^6/ul (4.70-6.10); RED CELL DISTRIBUTION WIDTH 14.9 % (11.5-14.5)
[2017-11-25 12:06] LABS: ALANINE AMINOTRANSFERASE 45 IU/L (13-69); ALBUMIN 3.1 g/dl (3.3-4.9); ALKALINE PHOSPHATASE 81 IU/L (42-121); ANION GAP 12 (8-16); ASPARTATE AMINO TRANSFERASE 24 IU/L (15-46); BILIRUBIN,INDIRECT 0.7 mg/dl (0-1.1); BILIRUBIN,TOTAL 0.7 mg/dl (0.2-1.3); BLOOD UREA NITROGEN 18 mg/dl (7-20); CALCIUM 8.7 mg/dl (8.4-10.2); CARBON DIOXIDE 29 mmol/L (21-31); CHLORIDE 105 mmol/L (97-110); CREATININE 0.97 mg/dl (0.61-1.24); GLUCOSE 127 mg/dl (70-220); POTASSIUM 4.4 mmol/L (3.5-5.1); SODIUM 142 mmol/L (135-144)
[2017-11-25 12:08] LABS: MAGNESIUM 1.6 mg/dl (1.7-2.5)
[2017-11-25 13:06] LABS: ALBUMIN/GLOBULIN RATIO 1.06
[2017-11-25] MEDS: MAGNESIUM SULFATE 2 GM/50 ML 50 ML IVPB ×2 (14:35→16:35)
[2017-11-25] MEDS: ATORVASTATIN 10 MG TAB PO (20:22)
[2017-11-25] MEDS: DOXAZOSIN 2 MG TAB PO (20:23)
[2017-11-26] MEDS: PANTOPRAZOLE 40 MG INJ IV (05:09)
[2017-11-26] MEDS: D5W-0.45 NACL + KCL 20 MEQ 1,000 ML IV ×4 (07:09→23:28)
[2017-11-26] MEDS: FIDAXOMICIN 200 MG TABLET PO ×2 (08:18→20:13)
[2017-11-26] MEDS: LACTOBACILLUS RHAMNOSUS CAP PO ×2 (08:18→20:13)
[2017-11-26] MEDS: VALSARTAN 160 MG TAB PO (08:19)
[2017-11-26] MEDS: AMLODIPINE 5 MG TAB PO (08:19)
[2017-11-26] MEDS: CLOPIDOGREL 75 MG TAB PO (08:19)
[2017-11-26] MEDS: HYDROCHLOROTHIAZIDE 25 MG TAB PO (08:19)
[2017-11-26] MEDS: ENOXAPARIN 40 MG/0.4 ML SYG SC (08:22)
[2017-11-26] MEDS: DOXAZOSIN 2 MG TAB PO (20:14)
[2017-11-26] MEDS: ATORVASTATIN 10 MG TAB PO (20:14)
[2017-11-27] MEDS: PANTOPRAZOLE 40 MG INJ IV (05:20)
[2017-11-27] MEDS: D5W-0.45 NACL + KCL 20 MEQ 1,000 ML IV ×2 (07:12→16:53)
[2017-11-27] MEDS: FIDAXOMICIN 200 MG TABLET PO ×2 (08:22→20:37)
[2017-11-27] MEDS: LACTOBACILLUS RHAMNOSUS CAP PO ×2 (08:22→20:38)
[2017-11-27] MEDS: CLOPIDOGREL 75 MG TAB PO (08:22)
[2017-11-27] MEDS: AMLODIPINE 5 MG TAB PO (08:22)
[2017-11-27] MEDS: HYDROCHLOROTHIAZIDE 25 MG TAB PO (08:22)
[2017-11-27] MEDS: VALSARTAN 160 MG TAB PO (08:23)
[2017-11-27] MEDS: ENOXAPARIN 40 MG/0.4 ML SYG SC (08:30)
[2017-11-27 11:29] LABS: MAGNESIUM 1.7 mg/dl (1.7-2.5)
[2017-11-27] MEDS: ATORVASTATIN 10 MG TAB PO (20:37)
[2017-11-27] MEDS: DOXAZOSIN 2 MG TAB PO (20:39)
[2017-11-28] MEDS: D5W-0.45 NACL + KCL 20 MEQ 1,000 ML IV ×3 (01:04→23:08)
[2017-11-28] MEDS: PANTOPRAZOLE 40 MG INJ IV (05:14)
[2017-11-28] MEDS: LACTOBACILLUS RHAMNOSUS CAP PO ×2 (08:12→20:31)
[2017-11-28] MEDS: FIDAXOMICIN 200 MG TABLET PO ×2 (08:12→20:34)
[2017-11-28] MEDS: CLOPIDOGREL 75 MG TAB PO (08:12)
[2017-11-28] MEDS: VALSARTAN 160 MG TAB PO (08:13)
[2017-11-28] MEDS: HYDROCHLOROTHIAZIDE 25 MG TAB PO (08:13)
[2017-11-28] MEDS: AMLODIPINE 5 MG TAB PO (08:13)
[2017-11-28] MEDS: ENOXAPARIN 40 MG/0.4 ML SYG SC (08:39)
[2017-11-28] MEDS: ATORVASTATIN 10 MG TAB PO (20:30)
[2017-11-28] MEDS: DOXAZOSIN 2 MG TAB PO (20:31)
[2017-11-29] MEDS: D5W-0.45 NACL + KCL 20 MEQ 1,000 ML IV ×3 (03:19→11:19)
[2017-11-29] MEDS: PANTOPRAZOLE 40 MG INJ IV (06:27)
[2017-11-29] MEDS: FIDAXOMICIN 200 MG TABLET PO (08:24)
[2017-11-29] MEDS: AMLODIPINE 5 MG TAB PO (08:24)
[2017-11-29] MEDS: VALSARTAN 160 MG TAB PO (08:24)
[2017-11-29] MEDS: CLOPIDOGREL 75 MG TAB PO (08:24)
[2017-11-29] MEDS: HYDROCHLOROTHIAZIDE 25 MG TAB PO (08:24)
[2017-11-29] MEDS: LACTOBACILLUS RHAMNOSUS CAP PO (08:24)
[2017-11-29] MEDS: ENOXAPARIN 40 MG/0.4 ML SYG SC (09:04)
== END 2017-11-29 16:15 | disposition home or self-care (01) | DRG 439 ==
LOC: E/R 12:55 → MS2 17:10
DX: K85.90 Acute pancreatitis without necrosis or infection, unspecified (principal); N13.8 Other obstructive and reflux uropathy; A04.72 Enterocolitis due to Clostridium difficile, not specified as recurrent; E11.22 Type 2 diabetes mellitus with diabetic chronic kidney disease; Z95.1 Presence of aortocoronary bypass graft; N18.2 Chronic kidney disease, stage 2 (mild); K80.20 Calculus of gallbladder without cholecystitis without obstruction; E79.0 Hyperuricemia without signs of inflammatory arthritis and tophaceous disease; E78.5 Hyperlipidemia, unspecified; D50.9 Iron deficiency anemia, unspecified; N40.1 Benign prostatic hyperplasia with lower urinary tract symptoms; I25.10 Atherosclerotic heart disease of native coronary artery without angina pectoris; I12.9 Hypertensive chronic kidney disease with stage 1 through stage 4 chronic kidney disease, or unspecified chronic kidney disease; Z79.82 Long term (current) use of aspirin; Z79.02 Long term (current) use of antithrombotics/antiplatelets; Z87.891 Personal history of nicotine dependence
CPT/HCPCS: 74176; 74178; 80048; 80053; 81001; 82150; 82270; 83036; 83690; 83735; 84100; 85025; 86301; 87075; 87081; 96374; 96375; 99285-25

== ENCOUNTER 2018-04-11 08:06 | Day surgery (SDC) | payer MEDICARE, BC ==
[~2018-04-11 08:06] MED LIST: CEFAZOLIN 2 GM/50 ML (PMX) 50 ML IVPB
== END 2018-04-11 09:17 | disposition home or self-care (01) ==
LOC: SDS 08:06
DX: K80.20 Calculus of gallbladder without cholecystitis without obstruction (principal); Z53.9 Procedure and treatment not carried out, unspecified reason